=== PATIENT | male | born 1990 | race Two or more races ===

== ENCOUNTER 2024-09-20 16:24 | Emergency (ER) | payer MEDICAID, SELFPAY ==
[2024-09-20 16:38] VITALS: BP 131/87; PULSE 100; RESP 16; TEMP 37; O2SAT 97; BMI 31.6
--- NOTE | 2024-09-20 16:50 | XR_ITS ---
Examination: Abdomen sonogram, Limited Date and time of exam: September 20, 2024 7007 hours Indications: Epigastric pain nausea vomiting beginning 3 days ago Technique: Real-time killian scale transabdominal sonographic images of the upper abdomen obtained. Findings: Multiple gallstones Normal gallbladder wall 0.2 cm Normal common bile duct 0.3 cm Pancreatic head 2.5 cm Hepatomegaly 19 cm fatty infiltration no focal liver lesions Normal hepatopedal portal venous flow Patent IVC Impression: Cholelithiasis, negative for cholecystitis Moderate hepatomegaly fatty liver
--- NOTE | 2024-09-20 16:50 | XR_ITS ---
Examination: CT abdomen and pelvis without contrast. Coronal 3-D reconstructions. Sagittal 2-D reconstructions. Date and time of exam:September 20, 2024 1701 hrs. Comparison September 30, 2022 Indications: Epigastric pain nausea and vomiting onset today, diagnosis severe acute pancreatitis September 30, 2022 CTDI: vol (mGy): 6.63 DLP: (mGycm): 390 Technique: Axial images of the abdomen have been obtained, 3 mm slice thickness Intravenous contrast material has not been administered. Low dose protocols were performed. One or more of the following dose reduction techniques were used; automated exposure control, adjustment of the mA and/or KV according to patient size, use of iterative reconstruction technique. Findings: No focal liver or splenic lesions, hepatomegaly 21 cm No gallstones Mild edema about the pancreas which appears mildly diffusely enlarged No renal or ureteral calculi, no hydronephrosis Normal appendix No bowel obstruction or diverticulitis Contracted urinary bladder with wall thickening, no prostatomegaly The osseous structures are intact Impression: Findings consistent with acute pancreatitis, consider MRCP follow-up
--- NOTE | 2024-09-20 16:51 | PD.EDRME ---
Rapid Medical Screening Exam RME Arrival date/time: 09/20/24 16:24 34-year-old male alcoholic presents to the emergency department complains of abdominal pain Chief Complaint: Abdominal Pain Time Seen by Provider: 09/20/24 16:48 Vital signs: Vital Signs Temperature 98.6 F 09/20/24 16:38 Pulse Rate 100 09/20/24 16:38 Respiratory Rate 16 09/20/24 16:38 Blood Pressure 131/87 H 09/20/24 16:38 Pulse Oximetry (%) 97 09/20/24 16:38 Oxygen Delivery Method Room Air 09/20/24 16:38
[2024-09-20] MEDS: PANTOPRAZOLE 40 MG TABLET PO (17:36)
[2024-09-20 17:48] LABS: Basophils # (Auto) 0.1 Thou/mm3 (0.0-0.2); Basophils % (Auto) 1 % (0-2.5); Eosinophils # (Auto) 0.1 Thou/mm3 (0.0-0.5); Eosinophils % (Auto) 1 % (0-10); Hematocrit 46.4 % (41.0-53.0); Hemoglobin 16.7 g/dL (13.5-16.0); Immature Granulocytes % (Auto) 1 % (0-0); Immature Granulocytes Auto 0.09 Thou/mm3 (0.00-0.00); Lymphocytes # (Auto) 3.5 Thou/mm3 (1.0-4.8); Lymphocytes % (Auto) 44 % (10-50); Mean Corpuscular Hemoglobin 31.2 pg (25.0-35.0); Mean Corpuscular Volume 87 fL (80-100); Monocytes # (Auto) 0.7 Thou/mm3 (0.0-0.8); Monocytes % (Auto) 8 % (0-12); Neutrophils # (Auto) 3.7 Thou/mm3 (1.8-7.7); Neutrophils % (Auto) 46 % (37-80); Nucleated Red Blood Cell % 0 /100 WBC (0); Platelet Count 382 Thou/mm3 (140-440); RDW Standard Deviation 39.7 fL (35.1-43.9); Red Blood Count 5.36 Miln/mm3 (4.50-5.90); White Blood Count 8.1 Thou/mm3 (3.8-10.6)
[2024-09-20 18:13] LABS: Alanine Aminotransferase 167 U/L (10-49); Albumin, Serum 4.9 gm/dL (3.5-5.0); Albumin/Globulin Ratio 1.8 (1.2-2.2); Alcohol, Blood Medical 141.9 mg/dL (0-10.0); Alkaline Phosphatase 95 U/L (46-116); Anion Gap 9 (7-16); Aspartate Amino Transferase 65 U/L (0-34); BUN/Creatinine Ratio 11 Ratio (12-20); Bilirubin,Total 0.6 mg/dL (0.3-1.2); Blood Urea Nitrogen 8 mg/dL (9-23); Calcium 9.5 mg/dL (8.3-10.6); Calcium (Corrected) 9.5 mg/dL (8.5-10.1); Carbon Dioxide 31.3 mMol/L (20.0-31.0); Chloride 99 mMol/L (98-107); Creatinine (Component) 0.7 mg/dL (0.6-1.3); Estimated Creatinine Clearance 124.9 mL/min (>60); Globulin 2.8 gm/dL (2.3-3.5); Glucose 124 mg/dL (74-106); Lipase 36 U/L (12-53); Osmolality,Calculated 276 (275-295); Potassium 4.1 mMol/L (3.4-5.1); Sodium 139 mMol/L (136-145); Total Protein 7.7 gm/dL (5.7-8.2); eGFR > 60 See Note
[2024-09-20 18:54] LABS: Collection Type, Urine Clean Catch; Squamous Epithelial Cell,Urine 0 /hpf (0-5)
[2024-09-20 19:11] LABS: Bilirubin,Urine Negative (Negative); Blood,Urine Trace (Negative); Clarity,Urine Clear (Clear/Hazy); Color,Urine Colorless (Lt Yel-Yel); Culture Indicated,Urine Not Indicated; Glucose, Urine Negative (Negative); Ketones,Urine Negative (Negative); Leukocyte Esterase,Urine Negative (Negative); Nitrite,Urine Negative (Negative); Protein,Urine Negative (Neg - Trace); RBC,Urine 2 /hpf (0-3); Specific Gravity,Urine 1.005 (1.001-1.035); Urobilinogen,Urine Negative mg/dL (0.0-1.0); WBC,Urine 1 /hpf (0-5)
[2024-09-20 19:13] LABS: Amphetamine/Methamp Scrn,U Negative (Negative); Barbiturate Screen,Urine Negative (Negative); Benzodiazepines Screen,Urine Negative (Negative); Benzoylecgonine Screen, Ur Negative (Negative); Fentanyl Screen,Urine Negative (Negative); Opiate Screen,Urine Negative (Negative); THC Screen,Urine Negative (Negative)
--- NOTE | 2024-09-20 19:43 | EDNOTE_ITS ---
ED Alcohol RME/HPI General Chief Complaint: Abdominal Pain Stated Complaint: STOMACH PAIN X 3D; VOMIT/DIARRHEA; DRINKS DAILY Time Seen by Provider: 09/20/24 16:48 Source: patient Arrival date/time: 09/20/24 16:24 Mode of arrival: ambulatory Limitations: no limitations RME / HPI RME / HPI narrative: 09/20/24 16:24 34-year-old male alcoholic presents to the emergency department complains of abdominal pain Dr. Reyna?s Main ED Evaluation: 34-year-old male with history of alcohol abuse who presents to the emergency department for complaints of mild epigastric pain, off and on, for the past 3 days. He reports 2 similar symptoms in the past. He also shared he has history of pancreatitis. He comes in for further evaluation. Denies any other medical complaints or associated symptoms. Related Data Previous Rx's ?Medication ?Instructions ?Recorded quetiapine 25 mg tablet 25 mg PO HS #7 tabs 10/08/22 atorvastatin 20 mg tablet 40 mg (2 x 20 mg) PO HS 1 month 07/29/24 #60 tabs folic acid 1 mg tablet 1 mg PO BID 1 month #60 tabs 07/29/24 thiamine mononitrate (vit B1) 100 100 mg PO BID 1 month #60 tabs 07/29/24 mg tablet (Vitamin B-1 (mononitrate)) aluminum-mag hydroxide-simethicone 10 ml PO TID PRN indigestion 15 09/20/24 400 mg-400 mg-40 mg/5 mL oral susp days #3,000 mL (Advanced Antacid-Antigas) famotidine 20 mg tablet (Pepcid) 20 mg PO BID Gastritis 15 days #30 09/20/24 tabs pantoprazole 40 mg tablet,delayed 40 mg PO QDAY Gastritis 15 days 09/20/24 release (Protonix) #15 tabs sucralfate 1 gram tablet (Carafate) 1 g PO Q6H Gastritis 15 days #60 09/20/24 tabs Allergies Allergy/AdvReac Type Severity Reaction Status Date / Time No Known Allergies Allergy Verified 09/20/24 16:29 Review of Systems Review of Systems Systems Reviewed: All systems reviewed, normal except as documented Past Medical History Past Medical History CARDIAC: Negative Cardiac Disorders or Congestive Heart Failure RESPIRATORY: Negative Chronic Obstructive Pulmonary Disease (COPD) or Asthma GENITOURINARY: Negative Renal Disease ENDOCRINE: Negative Diabetes Mellitus Type 1 or Diabetes Mellitus Type 2 HEMATOLOGIC: Negative Sickle Cell Disease Social History SMOKING STATUS: Never smoker ED Exam Narrative Physical exam: GENERAL APPEARANCE: alert and oriented x 4, well-developed, well-nourished, no acute distress VITALS: All vitals were reviewed and the pulse ox is 97% on room air, which is normal according to my interpretation. HEENT: Normocephalic, atraumatic; pupils equal, round, reactive to light; EOMI; mucous membranes pink, moist; oropharynx clear NECK: Supple LUNGS: CTABL; no wheezes, no rales, no rhonchi HEART: Regular rate, regular rhythm; normal S1, S2; no murmurs ABDOMEN: non distended; normal BS; soft, mild epigastric tenderness, no guarding, no rebound; no masses, no organomegaly, no hernia BACK: no CVA tenderness EXTREMITIES: atraumatic; no edema NEUROLOGIC: awake; alert and oriented x4; cranial nerves II-XII grossly intact; no focal sensory or motor deficits PSYCHIATRIC: appropriate mood and affect SKIN: warm, dry, normal color; no rashes General Limitations: Present no limitations Course Quality Measures none Orders Category Date Time Status CT abdomen pelvis wo con Stat Exams 09/20/24 16:50 Completed US gall bladder Stat Exams 09/20/24 16:50 Completed Alcohol, Blood Medical Stat Lab 09/20/24 17:33 Completed CBC Stat Lab 09/20/24 17:33 Completed Comprehensive Metabolic Panel Stat Lab 09/20/24 17:33 Completed Drug Screen,Urine Stat Lab 09/20/24 18:47 Completed Lipase Stat Lab 09/20/24 17:33 Completed UA, C/S IF [Urinalysis, C/S if Indicated] Stat Lab 09/20/24 18:47 Completed Acetaminophen Tab [Tylenol ES Tab] Med 09/20/24 19:47 Discontinued 1,000 mg PO X1 ONE Famotidine [Pepcid] Med 09/20/24 19:47 Discontinued 20 mg PO X1 ONE Pantoprazole [Protonix] Med 09/20/24 16:50 Discontinued 40 mg PO X1 ONE Sucralfate [Carafate] Med 09/20/24 19:47 Discontinued 1 gm PO X1 ONE mg Hyd/Al Hyd/Josué Susp [Maalox Susp] Med 09/20/24 19:47 Discontinued 30 ml PO X1 ONE Vital Signs Vital signs: Vital Signs Temperature 98.6 F 09/20/24 16:38 Pulse Rate 100 09/20/24 16:38 Respiratory Rate 16 09/20/24 16:38 Blood Pressure 131/87 H 09/20/24 16:38 Pulse Oximetry (%) 97 09/20/24 16:38 Oxygen Delivery Method Room Air 09/20/24 16:38 Discharge Plan Plan Patient Disposition: HOME (Self Care) Disposition Comment: Stable for discharge Patient condition on transfer: Stable Prescriptions/Referrals Prescriptions/Med Rec: New famotidine [Pepcid] 20 mg tablet 20 mg PO BID 15 Days Qty: 30 0RF alum-mag hydroxide-simeth [Advanced Antacid-Antigas] 400-400-40 mg/5 mL suspension 10 ml PO TID PRN (Reason: indigestion) 15 Days Qty: 3000 0RF sucralfate [Carafate] 1 gram tablet 1 g PO Q6H 15 Days Qty: 60 0RF pantoprazole [Protonix] 40 mg tablet,delayed release (DR/EC) 40 mg PO QDAY 15 Days Qty: 15 0RF No Action atorvastatin 20 mg Tablet 40 mg PO HS 30 Days Qty: 60 1RF folic acid 1 mg tablet 1 mg PO BID 30 Days Qty: 60 1RF thiamine mononitrate (vit B1) [Vitamin B-1 (mononitrate)] 100 mg Tablet 100 mg PO BID 30 Days Qty: 60 1RF quetiapine 25 mg tablet 25 mg PO HS Qty: 7 0RF Referrals: Tory Davis MD [Physician] - In 1 week No Primary/Family,Physician [Primary Care Provider] - In 1 week Problem List Clinical Impression: Gastritis, Acute epigastric pain Patient/Caregiver Discharge Instructions Discharge Activity: activity as tolerated Education Materials: Finding the Right Rehab ..., Social Drinking vs Problem Drinking, Treating Gastritis, Understanding Gastritis, ED Gastritis (Adult), ED PEPTIC ULCER vs GASTRITIS Additional Instructions: It is very important that you stop drinking alcohol. You probably have something called alcoholic gastritis. This is an inflammation of your stomach due to a high alcohol consumption. It may just disappear after you stop drinking. I called the multiple medications to your pharmacy. Please take these as directed You should follow-up with your primary care doctor within the next several days. You should also follow-up with Dr. Davis. Dr. Davis is our electrical assembly supervisor which is a specialist with the stomach. Please just call his office to make an appointment As always if you are not improving within 48 hours or if you are worsening in any way please return to the emergency department and we will help you Print Language: Monegasque Stand Alone Forms: [facility] Award Info., Patient Portal Info Letter Alcohol MDM Narrative MDM Narrative: Scribe Attestation: I, Vanessakeyla Jose, am scribing for and in the presence of Dr. Reyna. Provider Notation: Although this document has been carefully reviewed, there may still be some phonetic and other typographical errors. These errors are purely grammatical due to imperfections in the software program and should not be construed in any way to compromise the substance of the patient's medical care during this visit. Patient data External records reviewed:: [facility] previous records Clinical information provided by:: patient Social determinants that could affect healthcare access:: none Patient has the following chronic illnesses:: Pancreatitis How is presenting disease/condition affected by chronic disease/condition?: uneffected by Evaluation data The following diagnostics were reviewed and interpreted by me:: lab results and radiology exam(s) Lab and/or radiology exams considered but not ordered:: None Interpretation Summary: Examination: CT abdomen and pelvis without contrast. Date and time of exam:September 20, 2024 1701 hrs. Comparison September 30, 2022 Indications: Epigastric pain nausea and vomiting onset today, diagnosis severe acute pancreatitis September 30, 2022 Findings: No focal liver or splenic lesions, hepatomegaly 21 cm No gallstones Mild edema about the pancreas which appears mildly diffusely enlarged No renal or ureteral calculi, no hydronephrosis Normal appendix No bowel obstruction or diverticulitis Contracted urinary bladder with wall thickening, no prostatomegaly The osseous structures are intact Impression: Findings consistent with acute pancreatitis, consider MRCP follow-up Dictated By: Nader Posadas MD Examination: Abdomen sonogram, Limited Date and time of exam: September 20, 2024 7007 hours Indications: Epigastric pain nausea vomiting beginning 3 days ago Technique: Real-time killian scale transabdominal sonographic images of the upper abdomen obtained. Findings: Multiple gallstones Normal gallbladder wall 0.2 cm Normal common bile duct 0.3 cm Pancreatic head 2.5 cm Hepatomegaly 19 cm fatty infiltration no focal liver lesions Normal hepatopedal portal venous flow Patent IVC Impression: Cholelithiasis, negative for cholecystitis Moderate hepatomegaly fatty liver Dictated By: Nader Posadas MD Medications / Prescriptions Medications or Prescriptions considered but not ordered:: None Medication administrations:: Medication Administration History Discontinued Medications Acetaminophen (Acetaminophen 500 Mg Tablet) 1,000 mg PO X1 ONE Stop: 09/20/24 19:48 Last Admin: 09/20/24 20:06 Dose: 1,000 mg Documented By: OA Al Hydrox/Mg Hydrox/Simethicone (Mg Hyd/Al Hyd/Josué (Maalox Reg) Susp 30 Ml Udc) 30 ml PO X1 ONE Stop: 09/20/24 19:48 Last Admin: 09/20/24 20:06 Dose: 30 ml Documented By: OA Famotidine (Famotidine 20 Mg Tablet) 20 mg PO X1 ONE Stop: 09/20/24 19:48 Last Admin: 09/20/24 20:07 Dose: 20 mg Documented By: OA Pantoprazole Sodium (Pantoprazole 40 Mg Tablet) 40 mg PO X1 ONE Stop: 09/20/24 16:51 Last Admin: 09/20/24 17:36 Dose: 40 mg Documented By: OA Sucralfate (Sucralfate 1 Gm Tablet) 1 gm PO X1 ONE Stop: 09/20/24 19:48 As above Consultations Consultation(s) initiated? (list below): No Diagnosis Differential diagnosis alcohol: other (Cholecystitis, cholelithiasis, choledocholithiasis, gall stones pancreatitis, pancreatitis, gastritis, peptic ulcer disease) Most likely diagnosis given after review of the tests above:: See clinical impression below Admission Indicated Admission indicated?: not indicated Admission Request Was there a request for admission?: No Disposition Plan Disposition Plan: Discharge Discharge Attestation Discharge Attestation: The patient and all family members were given an opportunity to ask questions and understood the discharge instructions. Discharge instructions specifically effects, indications for sooner follow up or return to the emergency department, and the expected course of current diagnosis. Patient condition: Stable
[2024-09-20] MEDS: ACETAMINOPHEN 500 MG TABLET 1000 MG PO (20:06)
[2024-09-20] MEDS: MG HYD/AL HYD/SIME (Maalox Reg) SUSP 30 ML UDC PO (20:06)
[2024-09-20] MEDS: FAMOTIDINE 20 MG TABLET PO (20:07)
== END 2024-09-20 20:07 | disposition home or self-care (01) ==
PROVIDERS: Nurse Practitioner Primary Care; Emergency Provider Emergency Medicine
DX: K29.00 Acute gastritis without bleeding (principal); F10.10 Alcohol abuse, uncomplicated
CPT/HCPCS: 36415; 74176; 76705; 80053; 80307; 80320; 81001; 83690; 85025; 99284; A9270; G0480

== ENCOUNTER 2024-12-12 11:34 | Emergency (ER) | payer MEDICAID, SELFPAY ==
[2024-12-12 12:01] VITALS: BP 128/85; PULSE 79; RESP 20; TEMP 36.7; O2SAT 98; BMI 31.1
--- NOTE | 2024-12-12 12:03 | XR_ITS ---
Examination: CT abdomen and pelvis without contrast. Coronal 3-D reconstructions. Sagittal 2-D reconstructions. Date and time of exam:December 12, 2024 1227 hours Comparison September 20, 2024 INDICATIONS: Generalized abdominal pain nausea vomiting today, history acute pancreatitis CTDI: vol (mGy): 6.57 DLP: (mGycm): 368 Technique: Axial images of the abdomen have been obtained, 3 mm slice thickness Intravenous contrast material has not been administered. Low dose protocols were performed. One or more of the following dose reduction techniques were used; automated exposure control, adjustment of the mA and/or KV according to patient size, use of iterative reconstruction technique. Findings: No focal liver or splenic lesions No gallstones Suspicious for minimal pancreatic edema No renal or ureteral calculi, no hydronephrosis Aorta normal size Normal appendix No bowel obstruction No diverticulitis Urinary bladder intact No prostatomegaly IMPRESSION: Suspicious for minimal pancreatic edema, clinical correlation advised, consider MRCP follow-up
--- NOTE | 2024-12-12 12:03 | XR_ITS ---
Examination: CT brain head without contrast. 2-D sagittal coronal reconstructions Date and time of exam:December 12, 2024 1224 hours INDICATIONS: Generalized head pain and dizziness today CTDI: vol (mGy):50.1 DLP: (mGycm):1005 Technique: Multiple CT axial sections of the brain have been obtained, 5 mm slice thickness. Contrast has not been administered. 2-D sagittal, coronal reconstructions have been obtained Low dose protocols were performed. One or more of the following dose reduction techniques were used; automated exposure control, adjustment of the mA and/or KV according to patient size, use of iterative reconstruction technique. Findings: No significant ventricular enlargement. Intra-axial or extra-axial hemorrhage density is not seen. No mass effect or midline shift Basal cisterns are not remarkable. Fourth ventricle is midline. Cranial vault intact. Impression: Negative for acute hemorrhage, mass effect or midline shift Advise clinical correlation follow-up accordingly
--- NOTE | 2024-12-12 12:03 | PD.EDRME ---
Rapid Medical Screening Exam RME Arrival date/time: 12/12/24 11:34 34-year-old male presents the emergency room today with complaints of nausea vomiting and abdominal pain as well as headache patient reports everyday drinker Chief Complaint: Abdominal Pain Vital signs: Vital Signs Temperature 98.0 F 12/12/24 12:01 Pulse Rate 79 12/12/24 12:01 Respiratory Rate 20 12/12/24 12:01 Blood Pressure 128/85 H 12/12/24 12:01 Pulse Oximetry (%) 98 12/12/24 12:01 Oxygen Delivery Method Room Air 12/12/24 12:01
[2024-12-12] MEDS: METOCLOPRAMIDE INJ 5 MG/ML VIAL 2 ML 10 MG IM (12:13)
[2024-12-12 12:55] LABS: Basophils % (Auto) 0 % (0-2.5); Eosinophils % (Auto) 0 % (0-10); Hematocrit 44.6 % (41.0-53.0); Hemoglobin 16.7 g/dL (13.5-16.0); Immature Granulocytes % (Auto) 0 % (0-0); Immature Granulocytes Auto 0.03 Thou/mm3 (0.00-0.00); Lymphocytes # (Auto) 3.4 Thou/mm3 (1.0-4.8); Lymphocytes % (Auto) 43 % (10-50); Mean Corpuscular HGB Conc 37.4 g/dl (31.0-37.0); Mean Corpuscular Volume 83 fL (80-100); Monocytes # (Auto) 0.4 Thou/mm3 (0.0-0.8); Monocytes % (Auto) 6 % (0-12); Neutrophils # (Auto) 3.9 Thou/mm3 (1.8-7.7); Neutrophils % (Auto) 50 % (37-80); Nucleated Red Blood Cell % 0 /100 WBC (0); Platelet Count 327 Thou/mm3 (140-440); RDW Standard Deviation 35.8 fL (35.1-43.9); Red Blood Count 5.38 Miln/mm3 (4.50-5.90); White Blood Count 7.8 Thou/mm3 (3.8-10.6)
[2024-12-12 13:22] LABS: Alanine Aminotransferase 68 U/L (10-49); Albumin, Serum 4.8 gm/dL (3.5-5.0); Albumin/Globulin Ratio 1.7 (1.2-2.2); Alcohol, Blood Medical 252.4 mg/dL (0-10.0); Alkaline Phosphatase 89 U/L (46-116); Anion Gap 11 (7-16); Aspartate Amino Transferase 68 U/L (0-34); BUN/Creatinine Ratio 14 Ratio (12-20); Blood Urea Nitrogen 10 mg/dL (9-23); Calcium 8.9 mg/dL (8.3-10.6); Calcium (Corrected) 8.9 mg/dL (8.5-10.1); Carbon Dioxide 25.8 mMol/L (20.0-31.0); Chloride 96 mMol/L (98-107); Creatinine (Component) 0.7 mg/dL (0.6-1.3); Estimated Creatinine Clearance 123.9 mL/min (>60); Globulin 2.8 gm/dL (2.3-3.5); Glucose 139 mg/dL (74-106); Lipase 82 U/L (12-53); Osmolality,Calculated 267 (275-295); Potassium 3.5 mMol/L (3.4-5.1); Sodium 133 mMol/L (136-145); Total Protein 7.6 gm/dL (5.7-8.2); eGFR > 60 See Note
== END 2024-12-12 15:40 | disposition left against medical advice (07) ==
LOC: SERX 12:46
PROVIDERS: Nurse Practitioner Primary Care; Emergency Provider Family Medicine
DX: R10.84 Generalized abdominal pain (principal); R11.2 Nausea with vomiting, unspecified; R51.9 Headache, unspecified; R42 Dizziness and giddiness; Z53.29 Procedure and treatment not carried out because of patient's decision for other reasons
CPT/HCPCS: 36415; 70450; 74176; 80053; 80307; 80320; 81001; 83690; 85025; 96372; 99281; J2765; G0480

== ENCOUNTER 2024-12-17 17:06 | Inpatient (IN) | payer MEDICAID, SELFPAY ==
[2024-12-17 17:10] VITALS: BP 140/98; PULSE 93; RESP 18; TEMP 36.4; O2SAT 98
[2024-12-17 17:14] VITALS: PULSE 92; RESP 18; O2SAT 98
--- NOTE | 2024-12-17 17:18 | EDNOTE_ITS ---
ED General RME/HPI General Chief complaint: Alcohol Stated complaint: WEAKNESS Time Seen by Provider: 12/17/24 17:12 Arrival date/time: 12/17/24 17:06 CC: Alcohol intoxication with headache HPI ongoing all day, patient arrives via EMS reports stable vital signs. Patient is tearful slurred speech who complains of total body pain Related Data Previous Rx's ?Medication ?Instructions ?Recorded quetiapine 25 mg tablet 25 mg PO HS #7 tabs 10/08/22 atorvastatin 20 mg tablet 40 mg (2 x 20 mg) PO HS 1 mo nth 07/29/24 #60 tabs folic acid 1 mg tablet 1 mg PO BID 1 month #60 tabs 07/29/24 thiamine mononitrate (vit B1) 100 100 mg PO BID 1 owen h #60 tabs 07/29/24 mg tablet (Vitamin B-1 (mononitrate)) Allergies Allergy/AdvReac Type Severity Reaction Status Date / Time No Known Allergies Allergy Verified 12/12/24 11:40 Review of Systems Review of Systems ROS Unobtainable: unobtainable due to medical condition Past Medical History Past Medical History CARDIAC: Negative Cardiac Disorders or Congestive Heart Failure RESPIRATORY: Negative Chronic Obstructive Pulmonary Disease (COPD) or Asthma GENITOURINARY: Negative Renal Disease ENDOCRINE: Negative Diabetes Mellitus Type 1 or Diabetes Mellitus Type 2 HEMATOLOGIC: Negative Sickle Cell Disease Social History SMOKING STATUS: Never smoker ED Exam Narrative Physical exam: [General: Appears not in any acute distress Head normocephalic HEENT: Within acceptable limits Neck is supple nontender Chest equal chest rise nontender to palpation Respiratory: Clear to auscultation no wheezes crackles or rubs CV: Rate rhythm is regular no murmurs rubs or clicks Abdomen is soft nontender no masses positive bowel sounds all 4 quadrants Back: No CVA tenderness no spinous process tenderness from cervical spine thoracic and lumbar spine Skin: Intact no petechiae rash induration ulceration or crepitus Extremities: Moving all extremity against resistance cap refill less than 2 seconds neurosensory intact Neuro: Awake alert oriented x2, person and place, Glascow coma 15 no focal deficits] Course Quality Measures none Orders Category Date Time Status Alcohol, Blood Medical Stat Lab 12/17/24 17:50 Completed Alcohol, Blood Medical Stat Lab 12/18/24 03:27 Completed Amylase Stat Lab 12/18/24 03:27 Completed CBC Stat Lab 12/17/24 17:50 Completed CMP [Comprehensive Metabolic Panel] Stat Lab 12/17/24 17:50 Completed Lipase Stat Lab 12/18/24 03:27 Completed Magnesium Stat Lab 12/18/24 03:27 Completed PT [Prothrombin Time with INR] Stat Lab 12/17/24 17:50 Completed PTT [Partial Thromboplastin Time] Stat Lab 12/17/24 17:50 Completed Famotidine [Pepcid] Med 12/18/24 02:59 Discontinued 40 mg PO X1 ONE Folic Acid Inj Med 12/17/24 17:22 Discontinued 1 mg IVP X1 ONE KCL 10% Liq UDC 15 ML Med 12/18/24 02:00 Discontinued 40 meq PO X1 ONE LORazepam [Ativan] Med 12/18/24 08:20 Discontinued 2 mg PO X1 ONE NALOXONE INJ (Vial) [Narcan Inj (Vial)] Med 12/17/24 21:06 Discontinued 2 mg IV X1 ONE Ondansetron Odt [Zofran Odt] Med 12/18/24 02:59 Discontinued 4 mg PO X1 ONE Ondansetron Odt [Zofran Odt] Med 12/18/24 08:20 Discontinued 4 mg PO X1 ONE Pantoprazole [Protonix] Med 12/18/24 02:59 Discontinued 40 mg PO X1 ONE Ringers Lactated 1000 ml [Lactated Ringers] 1,000 ml Med 12/18/24 02:00 Discontinued IV 1,000 mls/hr Sodium Chloride 0.9% 1000 ml [Ns] 1,000 ml Med 12/17/24 17:22 Discontinued IV 999 mls/hr Thiamine Inj [Vitamin B-1 Inj] Med 12/17/24 17:22 Discontinued 100 mg IVP X1 ONE flumazeniL [Romazicon Inj] Med 12/17/24 21:06 Discontinued 0.2 mg IVP X1 ONE Vital Signs Vital signs: Vital Signs Temperature 97.6 F 12/17/24 17:10 Pulse Rate 93 12/17/24 17:10 Respiratory Rate 18 12/17/24 17:10 Blood Pressure 140/98 H 12/17/24 17:10 Pulse Oximetry (%) 98 12/17/24 17:10 Oxygen Delivery Method Room Air 12/17/24 17:10 [facility] [place] Patient data External records reviewed:: [facility] previous records Clinical information provided by:: patient Social determinants that could affect healthcare access:: alcohol use Patient has the following chronic illnesses:: Alcohol intoxication How is presenting disease/condition affected by chronic disease/condition?: e xacerbated by Evaluation data The following diagnostics were reviewed and interpreted by me:: lab results Lab and/or radiology exams considered but not ordered:: CBC shows no leukocytosis anemia thrombocytopenia Coags show PT of 12.7 INR is normal PTT is normal Sodium 135 potassium 3.3 chloride of 96. Glucose at 168. Bili is normal at 1.1 AST 717 ALT 412 alk phos at 115. Alcohol level of 394. Interpretation Summary: Patient is awake and alert with slurred speech but mildly unsteady on his feet. Patient is not able to tolerate p.o. fluids. None Medications Medications considered but not ordered:: None Medication administrations:: Medication Administration History Hydrocodone Bitart/Acetaminophen (Hydrocodone/Apap 5/325 Tablet) 1 tab PO Q4HR PRN PRN Reason: PAIN SCALE 4-6 (Moderate Stop: 12/23/24 11:33 Hydrocodone Bitart/Acetaminophen (Hydrocodone/Apap 10/325 Tab) 1 tab PO Q4HR PRN PRN Reason: PAIN SCALE 7-10 (Severe Stop: 12/23/24 11:33 Last Admin: 12/18/24 17:41 Dose: 1 tab Documented By: VG Ascorbic Acid (Ascorbic Acid 250 Mg Tablet) 250 mg PO BID [facility] Stop: 01/17/25 20:59 Dextrose (Dextrose 50%-Water Inj 50 Ml Syringe) 25 ml IV Q15MIN PRN PRN Reason: BG 50-70 responsive npo pt Stop: 01/17/25 11:40 Dextrose (Dextrose 50%-Water Inj 50 Ml Syringe) 50 ml IV Q15MIN PRN PRN Reason: BG <50 OR BG <70 & pt unresponsive Stop: 01/17/25 11:40 Folic Acid (Folic Acid 1 Mg Tablet) 1 mg PO QDAY JOSEPHINE Stop: 01/18/25 08:59 Gabapentin (Gabapentin 100 Mg Capsule) 200 mg PO BID JOSEPHINE Stop: 01/17/25 20:59 Glucagon (Glucagon Inj 1 Mg Vial) 1 mg IM Q15MIN PRN PRN Reason: BG <70, and no IV access Heparin Sodium (Porcine) (Heparin Sod Inj 5000 Unit/Ml Vial) 5,000 unit SC Q12HR JOSEPHINE Stop: 01/01/25 20:59 Sodium Chloride (Ns) 1,000 mls @ 120 mls/hr IV .Q8H20M JOSEPHINE Stop: 01/18/25 02:59 Sodium Chloride (Ns) 1,000 mls @ 120 mls/hr IV .Q8H20M ONE Stop: 12/18/24 22:19 Last Admin: 12/18/24 14:16 Dose: 120 mls/hr Documented By: VG Insulin Human Lispro (Insulin Lispro (Admelog) 1 Unit/0.01 Ml Unit) 0 unit SC Q6HR JOSEPHINE; Protocol Stop: 01/17/25 11:59 Last Admin: 12/18/24 18:06 Dose: Not Given Documented By: VG Non-Admin Reason: Per Protocol Admin: 12/18/24 14:00 Dose: Not Given Documented By: VG Non-Admin Reason: Per Protocol Lorazepam (Lorazepam 0.5 Mg Tablet) 0.5 mg PO Q4HR PRN PRN Reason: CIWA Score 2-6 Stop: 12/23/24 11:41 Lorazepam (Lorazepam 2 Mg/Ml Vial) 1 mg IV Q2HR PRN PRN Reason: CIWA SCORE 7-13 Stop: 12/23/24 11:41 Last Admin: 12/18/24 17:50 Dose: 1 mg Documented By: VG Lorazepam (Lorazepam 2 Mg/Ml Vial) 2 mg IV Q2HR PRN PRN Reason: CIWA [id number] Stop: 12/23/24 11:59 Ondansetron HCl (Ondansetron Inj 2 Mg/Ml Inj 2 Ml) 4 mg IV Q6H PRN; Protocol PRN Reason: NAUSEA OR VOMITING Stop: 01/17/25 11:33 Last Admin: 12/18/24 17:42 Dose: 4 mg Documented By: VG Pantoprazole Sodium (Pantoprazole Inj 40 Mg Vial) 40 mg IV QDAY [facility] Stop: 01/19/25 08:59 Sennosides (Senna Tablet) 1 tab PO QDAY PRN; Protocol PRN Reason: constipation Stop: 01/17/25 11:33 Thiamine HCl (Thiamine 100 Mg Tablet) 100 mg PO QDAY [facility] Stop: 01/18/25 08:59 Discontinued Medications Acetaminophen (Acetaminophen 325 Mg Tablet) 650 mg PO Q6H PRN PRN Reason: Mild Pain 1-3 or Fever >100.3 Stop: 01/17/25 11:33 Famotidine (Famotidine 20 Mg Tablet) 40 mg PO X1 ONE Stop: 12/18/24 03:00 Last Admin: 12/18/24 03:14 Dose: 40 mg Documented By: PERLA Flumazenil (Flumazenil Inj 0.1 Mg/Ml Vial 10 Ml) 0.2 mg IVP X1 ONE Stop: 12/17/24 21:07 Last Admin: 12/17/24 23:09 Dose: Not Given Documented By: LORENZO Non-Admin Reason: Wrong Patient Folic Acid (Folic Acid Inj 1 Mg/0.2 Ml) 1 mg IVP X1 ONE Stop: 12/17/24 17:23 Last Admin: 12/17/24 18:16 Dose: 1 mg Documented By: JUANITO Sodium Chloride (Ns) 1,000 mls @ 999 mls/hr IV .Q1H1M ONE Stop: 12/17/24 18:22 Last Infusion: 12/17/24 19:25 Dose: Infused Documented By: Admin: 12/17/24 18:16 Dose: 999 mls/hr Documented By: JUANITO Lactated Ringer's (Lactated Ringers) 1,000 mls @ 1,000 mls/hr IV .Q1H ONE Stop: 12/18/24 02:59 Last Admin: 12/18/24 02:43 Dose: Not Given Documented By: PERLA Non-Admin Reason: Cancelled by Provider Sodium Chloride (Ns) 1,000 mls @ 80 mls/hr IV .[id number] ONE Stop: 12/19/24 02:29 Sodium Chloride (Ns) 1,000 mls @ 80 mls/hr IV .[id number] JOSEPHINE Stop: 01/18/25 02:59 Lorazepam (Lorazepam 0.5 Mg Tablet) 2 mg PO X1 ONE Stop: 12/18/24 08:21 Last Admin: 12/18/24 08:24 Dose: 2 mg Documented By: LARISSA Lorazepam (Lorazepam 2 Mg/Ml Vial) 2 mg IV Q2HR JOSEPHINE Stop: 12/23/24 11:59 Last Admin: 12/18/24 16:00 Dose: Not Given Documented By: LARISSA Non-Admin Reason: Patient Asleep Admin: 12/18/24 14:16 Dose: 2 mg Documented By: Admin: 12/18/24 14:14 Dose: Not Given Documented By: LARISSA Non-Admin Reason: Duplicate Medication on eMAR Naloxone HCl (Naloxone Inj 0.4 Mg/Ml Vial) 2 mg IV X1 ONE Stop: 12/17/24 21:07 Last Admin: 12/17/24 23:09 Dose: Not Given Documented By: SF Non-Admin Reason: Wrong Patient Ondansetron HCl (Ondansetron Odt 4 Mg Tabrap) 4 mg PO X1 ONE; Protocol Stop: 12/18/24 03:00 Last Admin: 12/18/24 03:14 Dose: 4 mg Documented By: PERLA Ondansetron HCl (Ondansetron Odt 4 Mg Tabrap) 4 mg PO X1 ONE; Protocol Stop: 12/18/24 08:21 Last Admin: 12/18/24 08:24 Dose: 4 mg Documented By: LARISSA Pantoprazole Sodium (Pantoprazole 40 Mg Tablet) 40 mg PO X1 ONE Stop: 12/18/24 03:00 Last Admin: 12/18/24 03:14 Dose: 40 mg Documented By: PERLA Potassium Chloride (Potassium Chloride 10% 20 Meq/15 Ml Udc) 40 meq PO X1 ONE Stop: 12/18/24 02:01 Last Admin: 12/18/24 02:38 Dose: 40 meq Documented By: PERLA Thiamine HCl (Thiamine Inj 100 Mg/Ml Vial 2 Ml) 100 mg IVP X1 ONE Stop: 12/17/24 17:23 Last Admin: 12/17/24 18:16 Dose: 100 mg Documented By: JUANITO None Consultations Consultation(s) initiated? (list below): No Diagnosis Differential Diagnosis ED Complaint MDM: Acute alcohol intoxication cirrhosis alcohol is always doing Most likely diagnosis given after review of the tests above:: Acute alcohol intoxication Admission Indicated Admission indicated?: not indicated Explain why admission is indicated or not indicated:: Stable for discharge Admission Request Was there a request for admission?: No Disposition Plan Disposition Plan: Discharge Discharge Attestation Discharge Attestation: The patient and all family members were given an opportunity to ask questions and understood the discharge instructions. Discharge instructions specifically effects, indications for sooner follow up or return to the emergency department, and the expected course of current diagnosis. Patient condition: Stable Medical Decision Making Differential Diagnosis Differential Diagnosis: Acute alcohol intoxication cirrhosis alcohol is always doing Lab Data 12/18/24 14:20 12/18/24 14:20 Labs: Lab Results 12/17/24 12/18/24 Range/Units 17:50 03:27 WBC 4.9 (3.8-10.6) Thou/mm3 RBC 5.47 (4.50-5.90) Miln/mm3 Hgb 17.0 H (13.5-16.0) g/dL Hct 45.1 (41.0-53.0) % MCV 82 (80-100) fL MCH 31.1 (25.0-35.0) pg MCHC 37.7 H (31.0-37.0) g/dl RDW Std Deviation 36.0 (35.1-43.9) fL Plt Count 231 D (140-440) Thou/mm3 Neut % (Auto) 49 (37-80) % Lymph % (Auto) 42 (10-50) % [place] % (Auto) 7 (0-12) % Eos % (Auto) 1 (0-10) % Baso % (Auto) 0 (0-2.5) % Neut # (Auto) 2.4 (1.8-7.7) Thou/mm3 Lymph # (Auto) 2.1 (1.0-4.8) Thou/mm3 [place] # (Auto) 0.4 (0.0-0.8) Thou/mm3 Eos # (Auto) 0.0 (0.0-0.5) Thou/mm3 Baso # (Auto) 0.0 (0.0-0.2) Thou/mm3 Immature Gran # (Auto) 0.03 H (0.00-0.00) Thou/mm3 Absolute Nucleated RBC 0.00 (0.00-0.00) Thou/mm3 Immature Gran % 1 H (0-0) % Nucleated RBC % 0 (0) /100 WBC PT 12.7 H (9.0-12.2) Seconds INR 1.2 (0.9-1.3) APTT 32.7 (22.0-36.0) Seconds Sodium 134 L (136-145) mMol/L Potassium 3.3 L (3.4-5.1) mMol/L Chloride 96 L (98-107) mMol/L Carbon Dioxide 24.8 (20.0-31.0) mMol/L Anion Gap 13 (7-16) BUN 17 (9-23) mg/dL Creatinine 0.8 (0.6-1.3) mg/dL Estim Creat Clear Calc 131.4 (>60) mL/min eGFR > 60 (60 - ) See Note BUN/Creatinine Ratio 21 H (12-20) Ratio Glucose 168 H (74-106) mg/dL Calculated Osmolality 273 L (275-295) Calcium 8.6 (8.3-10.6) mg/dL Corrected Calcium 8.6 (8.5-10.1) mg/dL Magnesium 2.0 (1.6-2.6) mg/dL Total Bilirubin 1.1 (0.3-1.2) mg/dL AST 717 H* (0-34) U/L ALT 418 H (10-49) U/L Alkaline Phosphatase 115 (46-116) U/L Total Protein 7.2 (5.7-8.2) gm/dL Albumin 4.3 (3.5-5.0) gm/dL Globulin 2.9 (2.3-3.5) gm/dL Albumin/Globulin Ratio 1.5 (1.2-2.2) Triglycerides 403 H (30-150) mg/dL Cholesterol 126 L (132-200) mg/dL LDL Cholesterol, Calc TNP HDL Cholesterol 61 H (40-60) mg/dL Cholesterol/HDL Ratio 2.1 L (4.0-6.7) RATIO Amylase 77 (30-118) U/L Lipase 131 H (12-53) U/L Ethyl Alcohol 394.1 H 247.5 H (0-10.0) mg/dL Discharge Plan Plan Patient Disposition: Admit Acute Care w/in Hospital Problem List Clinical Impression: Alcohol abuse with withdrawal PA/EXTRUSION BENDER Supervising Physician MARIANNA/EXTRUSION BENDER Supervising Physician: Cayden Guzmán ENP, MD Attestation Attestation I took over the care from Cayden Guzmán NP at 11 PM on 12/17/24, see his notes for complete H&P. I was asked to watch the patient in severe alcohol intoxication. During my watch, the patient remained stable. At 6 AM on 12/18/24, the care of the patient was transferred to Dr. HENDRIX. Lukasz Gimenez MD
[2024-12-17 17:22] VITALS: BMI 27.3
[2024-12-17] MEDS: THIAMINE INJ 100 MG/ML VIAL 2 ML IVP (18:16)
[2024-12-17] MEDS: SODIUM CHLORIDE 0.9% 1000 ML 1,000 ML 999 ML IV (18:16)
[2024-12-17] MEDS: FOLIC ACID INJ 1 MG/0.2 ML IVP (18:16)
[2024-12-17 18:17] LABS: Basophils % (Auto) 0 % (0-2.5); Eosinophils % (Auto) 1 % (0-10); Hematocrit 45.1 % (41.0-53.0); Immature Granulocytes % (Auto) 1 % (0-0); Immature Granulocytes Auto 0.03 Thou/mm3 (0.00-0.00); Lymphocytes # (Auto) 2.1 Thou/mm3 (1.0-4.8); Lymphocytes % (Auto) 42 % (10-50); Mean Corpuscular HGB Conc 37.7 g/dl (31.0-37.0); Mean Corpuscular Hemoglobin 31.1 pg (25.0-35.0); Mean Corpuscular Volume 82 fL (80-100); Monocytes # (Auto) 0.4 Thou/mm3 (0.0-0.8); Monocytes % (Auto) 7 % (0-12); Neutrophils # (Auto) 2.4 Thou/mm3 (1.8-7.7); Neutrophils % (Auto) 49 % (37-80); Nucleated Red Blood Cell % 0 /100 WBC (0); Platelet Count 231 Thou/mm3 (140-440); Red Blood Count 5.47 Miln/mm3 (4.50-5.90); White Blood Count 4.9 Thou/mm3 (3.8-10.6)
[2024-12-17 18:42] LABS: INR 1.2 (0.9-1.3); Partial Thromboplastin Time 32.7 Seconds (22.0-36.0); Prothrombin Time 12.7 Seconds (9.0-12.2)
[2024-12-17 18:45] VITALS: BP 127/80; PULSE 74; RESP 16; TEMP 36.7; O2SAT 98
[2024-12-17 18:50] LABS: Alanine Aminotransferase 418 U/L (10-49); Albumin, Serum 4.3 gm/dL (3.5-5.0); Albumin/Globulin Ratio 1.5 (1.2-2.2); Alkaline Phosphatase 115 U/L (46-116); Anion Gap 13 (7-16); Aspartate Amino Transferase 717 U/L (0-34); BUN/Creatinine Ratio 21 Ratio (12-20); Bilirubin,Total 1.1 mg/dL (0.3-1.2); Blood Urea Nitrogen 17 mg/dL (9-23); Calcium 8.6 mg/dL (8.3-10.6); Calcium (Corrected) 8.6 mg/dL (8.5-10.1); Carbon Dioxide 24.8 mMol/L (20.0-31.0); Chloride 96 mMol/L (98-107); Creatinine (Component) 0.8 mg/dL (0.6-1.3); Estimated Creatinine Clearance 131.4 mL/min (>60); Globulin 2.9 gm/dL (2.3-3.5); Glucose 168 mg/dL (74-106); Osmolality,Calculated 273 (275-295); Potassium 3.3 mMol/L (3.4-5.1); Sodium 134 mMol/L (136-145); Total Protein 7.2 gm/dL (5.7-8.2); eGFR > 60 See Note
[2024-12-17 19:02] LABS: Alcohol, Blood Medical 394.1 mg/dL (0-10.0)
--- NOTE | 2024-12-17 20:11 | PC.NURSE ---
Pt is awake walking in rm. Ambulates without assist. Pt given a sandwich, chips and a drink and ate 100%. pt attempting to find someone who will pick him up.
[2024-12-18] VITALS (10 sets, daily range): BP systolic 102–146; BP diastolic 71–99; PULSE 75–93; RESP 16–30; TEMP 36.3–37.4; O2SAT 95–100
[2024-12-18] MEDS: POTASSIUM CHLORIDE 10% 20 MEQ/15 ML UDC 40 MEQ PO (02:38)
[2024-12-18] MEDS: FAMOTIDINE 20 MG TABLET 40 MG PO (03:14)
[2024-12-18] MEDS: PANTOPRAZOLE 40 MG TABLET PO (03:14)
[2024-12-18] MEDS: ONDANSETRON ODT 4 MG TABRAP PO ×2 (03:14→08:24)
[2024-12-18 03:51] LABS: Alcohol, Blood Medical 247.5 mg/dL (0-10.0); Amylase 77 U/L (30-118); Lipase 131 U/L (12-53)
--- NOTE | 2024-12-18 08:00 | PC.NURSE ---
In to assess pt. Pt with c/o anxiety, abd pain, and nausea. Provider notified, orders received. Pt asking for fluids/food. Pt given water and sandwich. Tolerated well.
[2024-12-18] MEDS: LORazepam 0.5 MG TABLET 2 MG PO (08:24)
--- NOTE | 2024-12-18 10:17 | PD.EDADDENDU ---
Emergency Room Addendum <Tiffany Nichole - Last Filed: 12/18/24 10:19> Addendum Narrative: 0600: Care assumed from the previous shift emergency physician. Past medical, surgical, social and family history reviewed. Vitals and home medications reviewed. I will assume the care of the patient at this time. Please refer to the emergency department record for history and examination from initial visit.? Physical exam by me shows patient under no acute distress at this time. 1010: Patient states that he wants to quit drinking but he does not feel safe to go home because he had bad tremors. 1017: Discussed test HPI, PMHx, lab, radiology results and/or management with hospitalist. Will admit for further evaluation and management. Accepts patient for admission. Diagnosis: - Alcohol withdrawals <Tatyana Vail MD - Last Filed: 12/18/24 16:04> Addendum Narrative: 0600: Care assumed from the previous shift emergency physician. Past medical, surgical, social and family history reviewed. Vitals and home medications reviewed. I will assume the care of the patient at this time. Please refer to the emergency department record for history and examination from initial visit.? Physical exam by me shows patient under no acute distress at this time. Per nurse patient tremulous with CIWA 17. 1010: Patient states he will stay for admit. C/o tremors, anxiety 1017: Discussed test HPI, PMHx, lab, radiology results and/or management with hospitalist. Will admit for further evaluation and management. Accepts patient for admission. Diagnosis: - Alcohol withdrawals
--- NOTE | 2024-12-18 12:18 | XR_ITS ---
Examination: Abdomen sonogram, complete Date and time of exam: December 18, 2024, 1308 hrs. Indications: Epigastric pain beginning one year ago alcohol abuse history. Technique: Multiple real-time grayscale transabdominal sonographic images of the abdomen have been obtained. Findings: Multiple gallstones Gallbladder wall 0.26 cm Common bile duct 0.3 cm Pancreatic head 2.3 cm Aorta not enlarged Liver 15 cm fatty infiltration Normal hepatopedal portal venous flow Patent IVC Right kidney 12.3 cm cortex 2.5 cm Left kidney 11.0 cm cortex 2.5 cm 13 mm left renal cyst Mild scar formation bilaterally Spleen 10.5 cm Impression: Cholelithiasis, negative for cholecystitis Fatty liver
[2024-12-18 12:26] LABS: Cardiac Risk Estimate 2.1 RATIO (4.0-6.7); Cholesterol 126 mg/dL (132-200); HDL Cholesterol 61 mg/dL (40-60); Triglycerides 403 mg/dL (30-150)
--- NOTE | 2024-12-18 13:36 | XR_ITS ---
Examination: CT abdomen with intravenous contrast CT pelvis with intravenous contrast 2-D coronal reconstructions 2-D sagittal reconstructions Date and time of exam:December 18, 2024 1611 hrs. Indications: Upper abdominal pain epigastric pain today, alcohol withdrawal CTDI: vol (mGy) 6.81 DLP: (mGycm) 422 Technique: Multiple axial sections of the abdomen and pelvis have been obtained. 64 slice high-resolution scanner used. 3 mm axial sections have been obtained, post intravenous injection 60 cc [id number] 2-D sagittal, coronal reconstructions obtained. Low dose protocols were performed. One or more of the following dose reduction techniques were used; automated exposure control, adjustment of the mA and/or KV according to patient size, use of iterative reconstruction technique. Findings: Diffuse fatty infiltration throughout the liver, no focal liver lesions Gallbladder wall is mildly thickened Spleen is not enlarged Edema is present around enlarged pancreatic head No hydronephrosis or renal calculi Aorta normal size Normal appendix No bowel obstruction Urinary bladder intact No prostatomegaly Impression: Recommend hepatobiliary sonography to exclude cholecystitis Mild acute pancreatitis, no pseudocyst
[2024-12-18] MEDS: SODIUM CHLORIDE 0.9% 1000 ML 1,000 ML 120 ML IV ×2 (14:16→22:28)
[2024-12-18] MEDS: LORazepam 2 MG/ML VIAL IV (14:16)
[2024-12-18 14:26] LABS: Basophils % (Auto) 0 % (0-2.5); Eosinophils # (Auto) 0.1 Thou/mm3 (0.0-0.5); Eosinophils % (Auto) 1 % (0-10); Hematocrit 41.5 % (41.0-53.0); Hemoglobin 15.5 g/dL (13.5-16.0); Immature Granulocytes % (Auto) 0 % (0-0); Immature Granulocytes Auto 0.03 Thou/mm3 (0.00-0.00); Lymphocytes # (Auto) 2.4 Thou/mm3 (1.0-4.8); Lymphocytes % (Auto) 30 % (10-50); Mean Corpuscular HGB Conc 37.3 g/dl (31.0-37.0); Mean Corpuscular Hemoglobin 31.5 pg (25.0-35.0); Mean Corpuscular Volume 84 fL (80-100); Monocytes # (Auto) 0.5 Thou/mm3 (0.0-0.8); Monocytes % (Auto) 6 % (0-12); Neutrophils # (Auto) 5.1 Thou/mm3 (1.8-7.7); Neutrophils % (Auto) 63 % (37-80); Nucleated Red Blood Cell % 0 /100 WBC (0); Platelet Count 212 Thou/mm3 (140-440); RDW Standard Deviation 36.3 fL (35.1-43.9); Red Blood Count 4.92 Miln/mm3 (4.50-5.90); White Blood Count 8.1 Thou/mm3 (3.8-10.6)
[2024-12-18 14:43] LABS: Amphetamine/Methamp Scrn,U Negative (Negative); Barbiturate Screen,Urine Negative (Negative); Benzodiazepines Screen,Urine Negative (Negative); Benzoylecgonine Screen, Ur Negative (Negative); Fentanyl Screen,Urine Negative (Negative); Opiate Screen,Urine Negative (Negative); THC Screen,Urine Negative (Negative)
[2024-12-18 14:46] LABS: Alanine Aminotransferase 393 U/L (10-49); Albumin, Serum 3.8 gm/dL (3.5-5.0); Albumin/Globulin Ratio 1.4 (1.2-2.2); Alkaline Phosphatase 127 U/L (46-116); Anion Gap 12 (7-16); BUN/Creatinine Ratio 16 Ratio (12-20); Bilirubin,Total 2.3 mg/dL (0.3-1.2); Blood Urea Nitrogen 11 mg/dL (9-23); Calcium 8.4 mg/dL (8.3-10.6); Calcium (Corrected) 8.6 mg/dL (8.5-10.1); Chloride 94 mMol/L (98-107); Creatinine (Component) 0.7 mg/dL (0.6-1.3); Estimated Creatinine Clearance 150.2 mL/min (>60); Globulin 2.8 gm/dL (2.3-3.5); Glucose 94 mg/dL (74-106); Osmolality,Calculated 260 (275-295); Potassium 3.3 mMol/L (3.4-5.1); Sodium 130 mMol/L (136-145); Total Protein 6.6 gm/dL (5.7-8.2); eGFR > 60 See Note
[2024-12-18 14:50] LABS: Aspartate Amino Transferase 620 U/L (0-34)
--- NOTE | 2024-12-18 14:50 | PC.SS ---
Initial assessment: this is 34 year old male pending admission to hospital services. Patient is Bulgarian speaking. Patient confirmed demographic information. Patient informs he lives at home with his friend, Conrad Devin. Patient informs he is independent with ADL's. No use of DME reported. Patient informs he does not follow up with primary care. Patient states he is here for excessive alcohol intake. Patient informs he drinks daily, about 4 cans of beer at least, reported unknown as to why he drinks daily. Patient was provided psychoeducation regarding safe substance use. The patient denied substance abuse resources at this time. Patient states he plans to return back home upon discharge. No current needs identified at this time. In case of an emergency, the patient would like his friend, Conrad to be contacted. D/c plan: Home Next of kin: friend, Conrad Beltran
--- NOTE | 2024-12-18 15:26 | ESHP_ITS ---
<Statement entered by Lu Darby MD - 12/18/24 20:53> 34-year-old male with past medical history of alcohol abuse presented to ED with chief complaints of abdominal pain. On presentation patient was hemodynamically stable, however was complaining of right upper quadrant pain along with radiation to the back. Evidence of pancreatitis on CT, slightly elevated lipase. Further labs revealed mild hyponatremia with hypokalemia, and alcoholic transaminitis. Patient also stated that he drinks about 32 ounces of beer per day, especially for the past 2 weeks he has been drinking consistently. On presentation CIWA was 19, patient received alcohol withdrawal treatment. Patient was admitted for acute alcohol withdrawal and acute pancreatitis treatment and management. Patient started on gabapentin 200 twice daily, was placed to CIWA protocol, will continue to trend transaminitis, Patient was placed on telemetry for close monitoring. I personally saw and examined the patient and discussed the assessment and plan with the entire medicine team, including my attending Dr. Haque, Lu Darby M.D. PGY-2 Disclaimer: Despite multiple revisions, due to the dictation software being used, the document bellow may not be free of grammatical errors including phonetic/typographic errors. However, this does not deter from our commitment to providing health care in the patient's best interest in mind. Documentation for date of: 12/18/24 HPI History of Present Illness History of present illness: CC: Alcohol Use Patient is a 34-year-old male with a past medical history of alcohol use disorder who denied any chronic past medical history and denied any recurrent medication being taken. Patient presented to the emergency room with a chief complaint of left upper quadrant abdominal pain radiating across abdomen to right side of upper quadrant. Patient stated he has an alcohol use disorder and typically drinks about 4X 32 ounce beers per day which has been ongoing for the past 2 weeks consistently. Patient has been drinking over 5 years. Patient stated he has no family locally and feels he can turn to alcohol. Patient denied any past medical history of seizures. Patient denied any hallucinations visual or auditory. Patient denied any recently loss of consciousness. Patient stated several episodes of emesis. Patient denied hematemesis or hemoptysis. Patient denied any GI bleeding. Patient denied any sick contacts. Admitted for alcohol use disorder and acute pancreatitis on 12/18/2024 w/ CIWA score of 19. ER Course: Vitals BP 140/98, HR 93, RR 18, T 97.6, SpO2 98 WBC 8.1 Na 130, osmolarity 260, K 3.3, chloride 94, Carbon dioxide 24, Anion gap 12, BUN 11, Cr 0.7, GFR >60 Total August 2.3, AST 620, ALT 393, Alkaline Phosphatase Lipid: Triglycerides 403, Cholesterol 126, HDL 61, LDL TNP Medication: 1 bolus, ER folic Acid and Thiamine, Potassium, Lorazepam 2 mg IVP X1 PMH: Alcohol Use Disorder Denied HTN or DM Past Surgical History: None Home Medication: None Social History: Alcohol Use Disorder >5+ Denied illicit drug use Allergies: None Code Status: Full Code Review of Systems Review of Systems Narrative Review of Systems: General appearance: NO weight change, NO fatigue, NO weakness, NO fever, NO chills, NO night sweats, No cough, Yes TREMORS Skin: NO rash, NO itching, NO sores, NO moles HEENT: NO Trauma, NO nausea, NO vomiting, NO visual changes, NO blurry vision, NO double vision, NO tinnitus, NO vertigo, NO ear discharge, NO rhinorrhea, NO stuffiness, NO sneezing, NO allergy, NO epistaxis. NO Hoarseness, NO sore throat, NO swollen neck. Cardiac: YES Palpitations, NO dyspnea on exertion, NO orthopnea, NO paroxysmal nocturnal dyspnea, NO edema Respiratory: NO Shortness of Breath, NO Wheezing, NO Cough, NO Sputum, NO hemoptysis GI:NO appetite, YES nausea, YES vomiting, NO dysphagia, NO changes in bowel frequency, NO stool color, NO diarrhea, NO constipation, NO hemetemesis, NO hemorrhoids, NO melena, NO hematechezia, NO abdominal pain, NO jaundice Renal: NO frequency, NO hesitancy, NO urgency, NO hematuria, NO nocturia, NO incontinence MSK: NO muscle weakness, NO gout, NO arthritis, NO muscle stiffness Neuro: NO headaches, NO tremors, NO weakness, NO paralysis, NO seizures, NO loss of consciousness, NO numbness. Hem: NO anemia, NO easy bruising/bleeding, NO petechiae, NO purpura Endo: NO heat/cold intolerance, NO excessive sweating, NO polyuria, NO polydipsia, NO polyphagia, NO thyroid problems, NO diabetes Pysch: NO mood, NO anxiety, NO depression Exam Vital Signs Temp Pulse Resp BP Pulse Ox O2 Del Method 99.3 F 80 18 132/83 H 97 Room Air 12/18/24 14:34 12/18/24 14:34 12/18/24 14:34 12/18/24 14:34 12/18/24 14:34 12/18/24 14:34 Narrative Exam General Appearance: Alert & Oriented X3, well-nourished MALE who is lying in bed in with anxiety w/ increased tremors HEENT: Skull symmetrical and atraumatic. Conjunctivae pin and moist. Pupils equal, round, reactive to light and accommodation (PERRL). External ear without lesion or discharge. Straight, nares patient, mucosa pink, no discharge. No thyroid nodule appreciated. No cervical lymphadenopathy. Cardio: Normal Rate and Rhythm with S1 and S2 heart sounds. No murmurs or extra heart sounds auscultated. No bruits on carotid auscultation. No peripheral edema or cyanosis. Lungs: Symmetric with good expansion. Chest and back non-tender. Breath sounds vesicular without crackles, wheezing or rhonchi Abdomen: left right upper quadrant tender, no rebound tenderness, Non-distended, Normal Reactive Bowel Sounds Neuro: Alert, cooperative, oriented to person, place, and time. Speech clear. CN grossly intact. Upper motor strength 5/5 and Lower motor strength 5/5. Sensation intact. Results: Labs 12/18/24 14:20 12/18/24 14:20 Labs: Short CBC 12/17/24 12/18/24 Range/Units 17:50 14:20 WBC 4.9 8.1 D (3.8-10.6) Thou/mm3 Hgb 17.0 H 15.5 (13.5-16.0) g/dL Hct 45.1 41.5 (41.0-53.0) % Plt Count 231 D 212 (140-440) Thou/mm3 BMP 12/17/24 12/18/24 17:50 14:20 Sodium 134 L 130 L Potassium 3.3 L 3.3 L Chloride 96 L 94 L Carbon Dioxide 24.8 24.0 BUN 17 11 Creatinine 0.8 0.7 Glucose 168 H 94 D Calcium 8.6 8.4 Liver Function 12/17/24 12/18/24 Range/Units 17:50 14:20 Total Bilirubin 1.1 2.3 H D (0.3-1.2) mg/dL AST 717 H* 620 H* (0-34) U/L ALT 418 H 393 H (10-49) U/L Alkaline Phosphatase 115 127 H (46-116) U/L Albumin 4.3 3.8 D (3.5-5.0) gm/dL Quality Measures Quality Measures VTE prophylaxis Medications Home Medications and Allergies Allergies Allergy/AdvReac Type Severity Reaction Status Date / Time No Known Allergies Allergy Verified 12/12/24 11:40 Visit Medications Hydrocodone Bitart/Acetaminophen (Hydrocodone/Apap 5/325 Tablet) 1 tab PO Q4HR PRN PRN Reason: PAIN SCALE 4-6 (Moderate Stop: 12/23/24 11:33 Hydrocodone Bitart/Acetaminophen (Hydrocodone/Apap 10/325 Tab) 1 tab PO Q4HR PRN PRN Reason: PAIN SCALE 7-10 (Severe Stop: 12/23/24 11:33 Ascorbic Acid (Ascorbic Acid 250 Mg Tablet) 250 mg PO BID [facility] Stop: 01/17/25 20:59 Dextrose (Dextrose 50%-Water Inj 50 Ml Syringe) 25 ml IV Q15MIN PRN PRN Reason: BG 50-70 responsive npo pt Stop: 01/17/25 11:40 Dextrose (Dextrose 50%-Water Inj 50 Ml Syringe) 50 ml IV Q15MIN PRN PRN Reason: BG <50 OR BG <70 & pt unresponsive Stop: 01/17/25 11:40 Folic Acid (Folic Acid 1 Mg Tablet) 1 mg PO QDAY JOSE[facility]INE Stop: 01/18/25 08:59 Gabapentin (Gabapentin 100 Mg Capsule) 200 mg PO BID JOSEPHINE Stop: 01/17/25 20:59 Glucagon (Glucagon Inj 1 Mg Vial) 1 mg IM Q15MIN PRN PRN Reason: BG <70, and no IV access Heparin Sodium (Porcine) (Heparin Sod Inj 5000 Unit/Ml Vial) 5,000 unit SC Q12HR JOSEPHINE Stop: 01/01/25 20:59 Sodium Chloride (Ns) 1,000 mls @ 120 mls/hr IV .Q8H20M JOSEPHINE Stop: 01/18/25 02:59 Sodium Chloride (Ns) 1,000 mls @ 120 mls/hr IV .Q8H20M ONE Stop: 12/18/24 22:19 Last Admin: 12/18/24 14:16 Dose: 120 mls/hr Insulin Human Lispro (Insulin Lispro (Admelog) 1 Unit/0.01 Ml Unit) 0 unit SC Q6HR JOSEPHINE; Protocol Stop: 01/17/25 11:59 Last Admin: 12/18/24 14:00 Dose: Not Given Lorazepam (Lorazepam 0.5 Mg Tablet) 0.5 mg PO Q4HR PRN PRN Reason: CIWA Score 2-6 Stop: 12/23/24 11:41 Lorazepam (Lorazepam 2 Mg/Ml Vial) 1 mg IV Q2HR PRN PRN Reason: CIWA SCORE 7-13 Stop: 12/23/24 11:41 Lorazepam (Lorazepam 2 Mg/Ml Vial) 2 mg IV Q2HR JOSEPHINE Stop: 12/23/24 11:59 Last Admin: 12/18/24 14:16 Dose: 2 mg Ondansetron HCl (Ondansetron Inj 2 Mg/Ml Inj 2 Ml) 4 mg IV Q6H PRN; Protocol PRN Reason: NAUSEA OR VOMITING Stop: 01/17/25 11:33 Pantoprazole Sodium (Pantoprazole Inj 40 Mg Vial) 40 mg IV QDAY [facility] Stop: 01/19/25 08:59 Sennosides (Senna Tablet) 1 tab PO QDAY PRN; Protocol PRN Reason: constipation Stop: 01/17/25 11:33 Thiamine HCl (Thiamine 100 Mg Tablet) 100 mg PO QDAY JOSEPHINE Stop: 01/18/25 08:59 Discontinued Medications Acetaminophen (Acetaminophen 325 Mg Tablet) 650 mg PO Q6H PRN PRN Reason: Mild Pain 1-3 or Fever >100.3 Stop: 01/17/25 11:33 Famotidine (Famotidine 20 Mg Tablet) 40 mg PO X1 ONE Stop: 12/18/24 03:00 Last Admin: 12/18/24 03:14 Dose: 40 mg Flumazenil (Flumazenil Inj 0.1 Mg/Ml Vial 10 Ml) 0.2 mg IVP X1 ONE Stop: 12/17/24 21:07 Last Admin: 12/17/24 23:09 Dose: Not Given Folic Acid (Folic Acid Inj 1 Mg/0.2 Ml) 1 mg IVP X1 ONE Stop: 12/17/24 17:23 Last Admin: 12/17/24 18:16 Dose: 1 mg Sodium Chloride (Ns) 1,000 mls @ 999 mls/hr IV .Q1H1M ONE Stop: 12/17/24 18:22 Last Infusion: 12/17/24 19:25 Dose: Infused Lactated Ringer's (Lactated Ringers) 1,000 mls @ 1,000 mls/hr IV .Q1H ONE Stop: 12/18/24 02:59 Last Admin: 12/18/24 02:43 Dose: Not Given Sodium Chloride (Ns) 1,000 mls @ 80 mls/hr IV .[id number] ONE Stop: 12/19/24 02:29 Sodium Chloride (Ns) 1,000 mls @ 80 mls/hr IV .[id number] JOSEPHINE Stop: 01/18/25 02:59 Lorazepam (Lorazepam 0.5 Mg Tablet) 2 mg PO X1 ONE Stop: 12/18/24 08:21 Last Admin: 12/18/24 08:24 Dose: 2 mg Naloxone HCl (Naloxone Inj 0.4 Mg/Ml Vial) 2 mg IV X1 ONE Stop: 12/17/24 21:07 Last Admin: 12/17/24 23:09 Dose: Not Given Ondansetron HCl (Ondansetron Odt 4 Mg Tabrap) 4 mg PO X1 ONE; Protocol Stop: 12/18/24 03:00 Last Admin: 12/18/24 03:14 Dose: 4 mg Ondansetron HCl (Ondansetron Odt 4 Mg Tabrap) 4 mg PO X1 ONE; Protocol Stop: 12/18/24 08:21 Last Admin: 12/18/24 08:24 Dose: 4 mg Pantoprazole Sodium (Pantoprazole 40 Mg Tablet) 40 mg PO X1 ONE Stop: 12/18/24 03:00 Last Admin: 12/18/24 03:14 Dose: 40 mg Potassium Chloride (Potassium Chloride 10% 20 Meq/15 Ml Udc) 40 meq PO X1 ONE Stop: 12/18/24 02:01 Last Admin: 12/18/24 02:38 Dose: 40 meq Thiamine HCl (Thiamine Inj 100 Mg/Ml Vial 2 Ml) 100 mg IVP X1 ONE Stop: 12/17/24 17:23 Last Admin: 12/17/24 18:16 Dose: 100 mg Assessment & Plan Plan Patient is a 34-year-old male with a past medical history of alcohol use disorder who was admitted on 12/18/2024 for alcohol withdrawl and acute pancreatitis. #Acute Pancreatitis Presented w/ abdominal pain and evidence of pancreatis on CT. Acute pancreatitis likely secondary to alcohol use disorder. Less likely secondary to triglycerides. vs Cholecystisis Diagnostics: Amylase [address] Ab (12/18/2024): Recommend hepatobiliary sonography to exclude cholecystitis. Mild acute pancreatitis, no pseudocyst. Gallbladder wall thickened, no stones noted. US Abdomen: Cholelithiasis/ multiple gallstones, negative for cholecystits, fatty liver, Common bile duct 0.3. Plan: -NPO -NS @120 cc, reduce if BP >160 -Asorbic Acid -Pain management -Zofran #Alcohol Withdrawal #Alcohol Use Disorder Patient consumed several 32 oz beers per day for over 5 years, but increased consumption over the last 2 weeks. Ethanol levels >247 Plan -urine toxicology -Folic and Thiamine -CIWA -admit to tele #Alcohol Hepatitis #Alcohol-Related Fatty liver Disease #Transaminitis Patient has a past medical history of alcohol use disorder with AST X 2 greater than ALTs. Previous serology was negative for hepatitis. Acute liver injury can not be ruled out if liver enzymes continue to rise. AST 717 ALT 418 (12/17/2024); AST 620 and ALT 393, Total Bili 2.3 Plan -Treat underlying alcohol use disorder -No steroids at this time #Hyperbilirubinemia Hyperbilirubinemia, likely secondary to alcohol use disorder vs less likely secondary to acute cholangitis as there is no fever or leukocytosis as well as patent common bile duct as noted on US. Plan -Continue to monitor total bili. #Mild Hyponatremia, Hypoosmolar #Hypokalemia Given history of alcohol use disorder and emesis likely secondary to poor oral intake. Plan -Normal Saline -K repleated -Continue to monitor Na -consider urine lytes #Cholelithiasis no acute intervention outpatient follow up Health Maintenance: Disp: Pt is currently admitted to floors for further management of acute pancreatitis and alcohol withdrawal, awaiting improve pain FEN: NPO, NS DVT: on subQ heparin Code: Full Code - The patient's plan was discussed with attending Dr. Haque and senior residents Dr. Wilner Oro MD PGY1 Internal Medicine
--- NOTE | 2024-12-18 16:04 | PC.NURSE ---
pt taken to CT.
[2024-12-18] MEDS: HYDROcodone/APAP 10/325 TAB PO ×2 (17:41→22:27)
[2024-12-18] MEDS: ONDANSETRON INJ 2 MG/ML INJ 2 ML 4 MG IV (17:42)
[2024-12-18] MEDS: LORazepam 2 MG/ML VIAL 1 MG IV ×2 (17:50→20:12)
--- NOTE | 2024-12-18 19:21 | PC.NURSE ---
Pt came to floor 182, pt complaining of pain in upper stomach and nausea. Pt already received pain medication and zofran in ED before coming up to tele, notified shift manager. Pt feeling less agitated and CIWA down to 9.
[2024-12-18] MEDS: GABAPENTIN 100 MG CAPSULE 200 MG PO (20:11)
[2024-12-18] MEDS: ASCORBIC ACID 250 MG TABLET PO (20:11)
[2024-12-18] MEDS: HYDROmorphone INJ 2 MG/ML VIAL 0.5 MG IVP (20:11)
[2024-12-18] MEDS: HEPARIN SOD INJ 5000 UNIT/ML VIAL SC (20:12)
[2024-12-18] MEDS: LORazepam 0.5 MG TABLET PO (22:27)
[2024-12-19] VITALS (8 sets, daily range): BP systolic 132–148; BP diastolic 89–96; PULSE 76–108; RESP 13–97; TEMP 35.9–36.3; O2SAT 97–99; BMI 23.8
[2024-12-19] MEDS: HYDROcodone/APAP 10/325 TAB PO ×3 (02:46→19:15)
[2024-12-19] MEDS: ONDANSETRON INJ 2 MG/ML INJ 2 ML 4 MG IV ×2 (02:47→19:14)
[2024-12-19] MEDS: LORazepam 0.5 MG TABLET PO (02:47)
[2024-12-19 05:13] LABS: Basophils % (Auto) 0 % (0-2.5); Eosinophils % (Auto) 0 % (0-10); Hematocrit 38.2 % (41.0-53.0); Immature Granulocytes % (Auto) 1 % (0-0); Immature Granulocytes Auto 0.04 Thou/mm3 (0.00-0.00); Lymphocytes # (Auto) 1.2 Thou/mm3 (1.0-4.8); Lymphocytes % (Auto) 15 % (10-50); Mean Corpuscular HGB Conc 36.6 g/dl (31.0-37.0); Mean Corpuscular Volume 85 fL (80-100); Monocytes # (Auto) 0.3 Thou/mm3 (0.0-0.8); Monocytes % (Auto) 4 % (0-12); Neutrophils # (Auto) 6.2 Thou/mm3 (1.8-7.7); Neutrophils % (Auto) 79 % (37-80); Nucleated Red Blood Cell % 0 /100 WBC (0); Platelet Count 174 Thou/mm3 (140-440); RDW Standard Deviation 36.4 fL (35.1-43.9); Red Blood Count 4.51 Miln/mm3 (4.50-5.90); White Blood Count 7.8 Thou/mm3 (3.8-10.6)
[2024-12-19 05:38] LABS: Alanine Aminotransferase 298 U/L (10-49); Albumin, Serum 3.4 gm/dL (3.5-5.0); Albumin/Globulin Ratio 1.4 (1.2-2.2); Alkaline Phosphatase 100 U/L (46-116); Anion Gap 10 (7-16); Aspartate Amino Transferase 381 U/L (0-34); BUN/Creatinine Ratio 13 Ratio (12-20); Blood Urea Nitrogen 8 mg/dL (9-23); Calcium (Corrected) 8.5 mg/dL (8.5-10.1); Carbon Dioxide 25.4 mMol/L (20.0-31.0); Chloride 97 mMol/L (98-107); Creatinine (Component) 0.6 mg/dL (0.6-1.3); Estimated Creatinine Clearance 162.2 mL/min (>60); Globulin 2.5 gm/dL (2.3-3.5); Glucose 113 mg/dL (74-106); Magnesium 1.7 mg/dL (1.6-2.6); Osmolality,Calculated 263 (275-295); Phosphorous 3.5 mg/dL (2.4-5.1); Potassium 3.3 mMol/L (3.4-5.1); Sodium 132 mMol/L (136-145); Thyroid Stimulating Hormone 1.94 uIU/mL (0.55-4.78); Total Protein 5.9 gm/dL (5.7-8.2); eGFR > 60 See Note
[2024-12-19] MEDS: SODIUM CHLORIDE 0.9% 1000 ML 1,000 ML 120 ML IV ×2 (06:28→15:04)
[2024-12-19 06:54] LABS: Glucose Estimated Average 103 mg/dL (80-131); Hemoglobin A1C 5.2 % Hgb (4.8-6.0)
[2024-12-19] MEDS: THIAMINE 100 MG TABLET PO (08:40)
[2024-12-19] MEDS: ASCORBIC ACID 250 MG TABLET PO ×2 (08:40→20:31)
[2024-12-19] MEDS: GABAPENTIN 100 MG CAPSULE 200 MG PO ×2 (08:40→20:31)
[2024-12-19] MEDS: HEPARIN SOD INJ 5000 UNIT/ML VIAL SC ×2 (08:40→20:32)
[2024-12-19] MEDS: FOLIC ACID 1 MG TABLET PO (08:40)
[2024-12-19] MEDS: POTASSIUM CHLORIDE 20 mEq TABCR 40 MEQ PO (08:40)
--- NOTE | 2024-12-19 13:12 | ESPR_ITS ---
<Statement entered by Lu Darby MD - 12/19/24 15:30> No acute overnight event. Saline the morning. 9, patient continued to be on gabapentin and Ativan per [facility] protocol. Patient also stated that abdominal pain significantly improved, today was started clear liquid diet, will advance as tolerated, monitor, AST, ALT down trended, will continue to monitor. Anticipate discharge in the next 24 hours I personally saw and examined the patient and discussed the assessment and plan with the entire medicine team, including my attending , Lu Darby M.D. PGY-2 Disclaimer: Despite multiple revisions, due to the dictation software being used, the document bellow may not be free of grammatical errors including phonetic/typographic errors. However, this does not deter from our commitment to providing health care in the patient's best interest in mind. Documentation for date of: 12/19/24 Subjective Subjective Interval history: No overnight events reported overnight. No emesis reported by patient with nausea still present. Patient denied any hallucinations either visual or auditory. No tremors noted on physical exam. Patient denied any hemoptysis. Patient denied any lower GI bleeding. Pain still present in the left upper quadrant radiating across abdomen. Advance diet as tolerated towards cardiac diet. D/C IV fluids. Potassium replacement given. AST/ALT continue to improved. Total Bili remains elevated at 3.0 but denied any fever, chills, WBC remain normal and biliary duct is normal as normal pancreas. Exam Vital Signs Temp Pulse Resp BP Pulse Ox O2 Del Method 96.8 F 82 17 148/92 H 98 Room Air 12/19/24 08:00 12/19/24 08:00 12/19/24 08:00 12/19/24 08:00 12/19/24 08:00 12/19/24 08:00 Narrative Exam General Appearance: Alert & Oriented X3, well-nourished MALE who is lying in bed in with anxiety w/ increased tremors HEENT: Skull symmetrical and atraumatic. Conjunctivae pin and moist. Pupils equal, round, reactive to light and accommodation (PERRL). External ear without lesion or discharge. Straight, nares patient, mucosa pink, no discharge. No thyroid nodule appreciated. No cervical lymphadenopathy. Cardio: Normal Rate and Rhythm with S1 and S2 heart sounds. No murmurs or extra heart sounds auscultated. No bruits on carotid auscultation. No peripheral edema or cyanosis. Lungs: Symmetric with good expansion. Chest and back non-tender. Breath sounds vesicular without crackles, wheezing or rhonchi Abdomen: left right upper quadrant tender, no rebound tenderness, Non-distended, Normal Reactive Bowel Sounds Neuro: Alert, cooperative, oriented to person, place, and time. Speech clear. CN grossly intact. Upper motor strength 5/5 and Lower motor strength 5/5. Sensation intact. Objective Labs 12/19/24 04:17 12/19/24 04:17 Labs: Laboratory Results - last 24 hr 12/18/24 12/18/24 12/19/24 14:08 14:20 04:17 WBC 8.1 D 7.8 RBC 4.92 4.51 Hgb 15.5 14.0 Hct 41.5 38.2 L MCV 84 85 MCH 31.5 31.0 MCHC 37.3 H 36.6 RDW Std Deviation 36.3 36.4 Plt Count 212 174 D Neut % (Auto) 63 79 Lymph % (Auto) 30 15 [place] % (Auto) 6 4 Eos % (Auto) 1 0 Baso % (Auto) 0 0 Neut # (Auto) 5.1 6.2 Lymph # (Auto) 2.4 1.2 [place] # (Auto) 0.5 0.3 Eos # (Auto) 0.1 0.0 Baso # (Auto) 0.0 0.0 Immature Gran # (Auto) 0.03 H 0.04 H Absolute Nucleated RBC 0.00 0.00 Immature Gran % 0 1 H Nucleated RBC % 0 0 Sodium 130 L 132 L Potassium 3.3 L 3.3 L Chloride 94 L 97 L Carbon Dioxide 24.0 25.4 Anion Gap 12 10 BUN 11 8 L Creatinine 0.7 0.6 Estim Creat Clear Calc 150.2 162.2 eGFR > 60 > 60 BUN/Creatinine Ratio 16 13 Glucose [address] Glu mg/dL 103 Hemoglobin A1c 5.2 Calculated Osmolality 260 L 263 L Calcium 8.4 8.0 L Corrected Calcium 8.6 8.5 Phosphorus 3.5 Magnesium 1.7 Total Bilirubin 2.3 H D 3.0 H D AST 620 H* 381 H ALT 393 H 298 H Alkaline Phosphatase 127 H 100 D Total Protein 6.6 5.9 Albumin 3.8 D 3.4 L Globulin 2.8 2.5 Albumin/Globulin Ratio 1.4 1.4 TSH 1.94 Urine Opiates Screen Negative Urine Fentanyl Screen Negative Ur Barbiturates Screen Negative U Amphetamin/Meth Scrn Negative U Benzodiazepines Scrn Negative U Cocaine Metab Screen Negative U Marijuana (THC) Screen Negative Quality Measures Quality Measures VTE prophylaxis Assessment & Plan Assessment Current Active Medications: Generic Name Dose Route Start Last Admin Trade Name Freq PRN Reason Stop Dose Admin Hydrocodone Bitart/Acetaminophen 1 tab 12/18/24 11:34 Hydrocodone/Apap 5/325 Tablet PO 12/23/24 11:33 Q4HR PRN PAIN SCALE 4-6 (Moderate Hydrocodone Bitart/Acetaminophen 1 tab 12/18/24 11:34 12/19/24 02:46 Hydrocodone/Apap 10/325 Tab PO 12/23/24 11:33 1 tab Q4HR PRN Administration PAIN SCALE 7-10 (Severe Ascorbic Acid 250 mg 12/18/24 21:00 12/19/24 08:40 Ascorbic Acid 250 Mg Tablet PO 01/17/25 20:59 250 mg BID JOSEPHINE Administration Dextrose 25 ml 12/18/24 11:41 Dextrose 50%-Water Inj 50 Ml Syringe IV 01/17/25 11:40 Q15MIN PRN BG 50-70 responsive npo pt Dextrose 50 ml 12/18/24 11:41 Dextrose 50%-Water Inj 50 Ml Syringe IV 01/17/25 11:40 Q15MIN PRN BG <50 OR BG <70 & pt unresponsive Folic Acid 1 mg 12/19/24 09:00 12/19/24 08:40 Folic Acid 1 Mg Tablet PO 01/18/25 08:59 1 mg QDAY JOSEPHINE Administration Gabapentin 200 mg 12/18/24 21:00 12/19/24 08:40 Gabapentin 100 Mg Capsule PO 01/17/25 20:59 200 mg BID JOSEPHINE Administration Glucagon 1 mg 12/18/24 11:41 Glucagon Inj 1 Mg Vial IM Q15MIN PRN BG <70, and no IV access Heparin Sodium (Porcine) 5,000 unit 12/18/24 21:00 12/19/24 08:40 Heparin Sod Inj 5000 Unit/Ml Vial SC 01/01/25 20:59 5,000 unit Q12HR JOSEPHINE Administration Sodium Chloride 1,000 mls @ 120 mls/hr 12/19/24 03:00 12/19/24 06:28 Ns IV 01/18/25 02:59 120 mls/hr .Q8H20M JOSEPHINE Administration Insulin Human Lispro 0 unit 12/18/24 12:00 12/19/24 13:02 Insulin Lispro (Admelog) 1 Unit/0.01 Ml Unit SC 01/17/25 11:59 Not Given Q6HR JOSEPHINE Protocol Lorazepam 0.5 mg 12/18/24 11:42 12/19/24 02:47 Lorazepam 0.5 Mg Tablet PO 12/23/24 11:41 0.5 mg Q4HR PRN Administration CIWA Score 2-6 Lorazepam 1 mg 12/18/24 11:42 12/18/24 20:12 Lorazepam 2 Mg/Ml Vial IV 12/23/24 11:41 1 mg Q2HR PRN Administration CIWA SCORE 7-13 Lorazepam 2 mg 12/18/24 17:57 Lorazepam 2 Mg/Ml Vial IV 12/23/24 11:59 Q2HR PRN CIWA [id number] Ondansetron HCl 4 mg 12/18/24 11:34 12/19/24 02:47 Ondansetron Inj 2 Mg/Ml Inj 2 Ml IV 01/17/25 11:33 4 mg Q6H PRN Administration NAUSEA OR VOMITING Protocol Pantoprazole Sodium 40 mg 12/20/24 09:00 Pantoprazole Inj 40 Mg Vial IV 01/19/25 08:59 QDAY [facility] Sennosides 1 tab 12/18/24 11:34 Senna Tablet PO 01/17/25 11:33 QDAY PRN constipation Protocol Thiamine HCl 100 mg 12/19/24 09:00 12/19/24 08:40 Thiamine 100 Mg Tablet PO 01/18/25 08:59 100 mg QDAY [facility] Administration Plan Patient is a 34-year-old male with a past medical history of alcohol use disorder who was admitted on 12/18/2024 for alcohol withdrawl and acute pancreatitis. #Acute Pancreatitis Presented w/ abdominal pain and evidence of pancreatis on CT. Acute pancreatitis likely secondary to alcohol use disorder. Less likely secondary to triglycerides. vs Cholecystisis pancreatitis as pancrease does not appear enlarged Diagnostics: Amylase [address] Ab (12/18/2024): Recommend hepatobiliary sonography to exclude cholecystitis. Mild acute pancreatitis, no pseudocyst. Gallbladder wall thickened, no stones noted. US Abdomen: Cholelithiasis/ multiple gallstones, negative for cholecystits, fatty liver, Common bile duct 0.3. Plan: -Advance Diet towards cardiac -NS @120 cc, reduce if BP >160, D/Cd -Asorbic Acid -Pain management -Zofran #Alcohol Withdrawal #Alcohol Use Disorder Patient consumed several 32 oz beers per day for over 5 years, but increased consumption over the last 2 weeks. Ethanol levels >247 CIWA (12/19/2024) 5 Utox Negative Plan -Folic and Thiamine -CIWA -admit to tele #Alcohol Hepatitis #Alcohol-Related Fatty liver Disease #Transaminitis, improved Patient has a past medical history of alcohol use disorder with AST X 2 greater than ALTs. Previous serology was negative for hepatitis. Acute liver injury can not be ruled out if liver enzymes continue to rise. AST 717 ALT 418 (12/17/2024); AST 620 and ALT 393, Total Bili 2.3->12/19/2024 AST 381, ALT 298 Total Bili 3.0 Maddrey's Score: 5.3 points Plan -Treat underlying alcohol use disorder -No steroids at this time -Hold Atorvastatin given transaminitis #Hyperbilirubinemia Hyperbilirubinemia, likely secondary to alcohol use disorder vs less likely secondary to acute cholangitis as there is no fever or leukocytosis as well as patent common bile duct as noted on US. Plan -Continue to monitor total bili. #Mild Hyponatremia, Hypoosmolar #Hypokalemia Given history of alcohol use disorder and emesis likely secondary to poor oral intake. Plan -K repleated 40 meq -Continue to monitor Na -consider urine lytes #Cholelithiasis no acute intervention outpatient follow up Health Maintenance: Disp: Pt is currently admitted to floors for further management of acute pancreatitis and alcohol withdrawal, awaiting improve pain FEN: clear liquids-->advance towards cardiac diet as tolerated. DVT: on subQ heparin Code: Full Code - The patient's plan was discussed with attending Dr. Haque and senior residents Dr. Wilner Oro MD PGY1 Internal Medicine Attending Provider Attestation/Addendum I have examined the patient, reviewed labs and imaging findings, discussed the case with the resident(s), and reviewed entered orders. I agree with the plan of care as outlined in this note, with these additional summaries/recommendations: Patient seen at bedside. No acute overnight events. Patient has no new symptoms to report today and seen eating lunch with no complaints. Patient admitted for acute alcohol withdrawal and receiving CIWA. Scheduled Librium added as well given patient's history of alcohol withdrawal and previous ICU admission for Precedex. customer technical services manager consult for resources. Add folic acid and thiamine. U tox negative and ethyl alcohol level of 355.8. No evdidence of DT or alcoholic hallucinosis at this time. Mild transaminitis present and abdominal ultrasound showed cholelithiasis, mild hepatomegaly, and appendicitis. No evidence of appendicitis on physical exam and ruled out. Lipase minimally elevated although no evidence of pancreatitis and does not meet 2 out of 3 diagnostic criteria at this time. Continue to monitor patient's withdrawal symptoms and we will treat aggressively. Repeat hematology and chemistry panel in AM. Dr. Castellanos
--- NOTE | 2024-12-19 15:26 | PC.SS ---
rounding note: Advance diet. Continue CIWA protocol continued. Possible d/c
[2024-12-20] VITALS: BP 124/75; PULSE 68; PULSE 70; RESP 18; TEMP 36.1; O2SAT 99
[2024-12-20] MEDS: HYDROcodone/APAP 5/325 TABLET 1 TAB PO (00:27)
[2024-12-20] MEDS: MELATONIN 3 MG TABLET 6 MG PO (01:40)
[2024-12-20 04:00] VITALS: BP 138/94; PULSE 68; PULSE 82; RESP 18; TEMP 36.1; O2SAT 99
[2024-12-20 05:23] LABS: Basophils % (Auto) 0 % (0-2.5); Eosinophils # (Auto) 0.2 Thou/mm3 (0.0-0.5); Eosinophils % (Auto) 2 % (0-10); Hematocrit 38.9 % (41.0-53.0); Hemoglobin 14.1 g/dL (13.5-16.0); Immature Granulocytes % (Auto) 0 % (0-0); Immature Granulocytes Auto 0.02 Thou/mm3 (0.00-0.00); Lymphocytes # (Auto) 1.8 Thou/mm3 (1.0-4.8); Lymphocytes % (Auto) 29 % (10-50); Mean Corpuscular HGB Conc 36.2 g/dl (31.0-37.0); Mean Corpuscular Hemoglobin 31.8 pg (25.0-35.0); Mean Corpuscular Volume 88 fL (80-100); Monocytes # (Auto) 0.5 Thou/mm3 (0.0-0.8); Monocytes % (Auto) 8 % (0-12); Neutrophils # (Auto) 3.7 Thou/mm3 (1.8-7.7); Neutrophils % (Auto) 60 % (37-80); Nucleated Red Blood Cell % 0 /100 WBC (0); Platelet Count 151 Thou/mm3 (140-440); Red Blood Count 4.44 Miln/mm3 (4.50-5.90); White Blood Count 6.1 Thou/mm3 (3.8-10.6)
[2024-12-20 06:00] VITALS: BMI 23.8
[2024-12-20 06:10] LABS: Alanine Aminotransferase 183 U/L (10-49); Albumin, Serum 3.7 gm/dL (3.5-5.0); Albumin/Globulin Ratio 1.5 (1.2-2.2); Alkaline Phosphatase 91 U/L (46-116); Anion Gap 7 (7-16); Aspartate Amino Transferase 142 U/L (0-34); BUN/Creatinine Ratio 8 Ratio (12-20); Blood Urea Nitrogen < 5 mg/dL (9-23); Calcium 8.5 mg/dL (8.3-10.6); Calcium (Corrected) 8.7 mg/dL (8.5-10.1); Carbon Dioxide 29.9 mMol/L (20.0-31.0); Chloride 96 mMol/L (98-107); Creatinine (Component) 0.6 mg/dL (0.6-1.3); Estimated Creatinine Clearance 162.2 mL/min (>60); Globulin 2.5 gm/dL (2.3-3.5); Glucose 112 mg/dL (74-106); Magnesium 1.9 mg/dL (1.6-2.6); Osmolality,Calculated 264 (275-295); Phosphorous 2.3 mg/dL (2.4-5.1); Potassium 3.5 mMol/L (3.4-5.1); Sodium 133 mMol/L (136-145); Total Protein 6.2 gm/dL (5.7-8.2); eGFR > 60 See Note
[2024-12-20 06:17] LABS: Bilirubin,Total 1.4 mg/dL (0.3-1.2)
[2024-12-20 08:00] VITALS: BP 117/90; PULSE 85; PULSE 86; RESP 14; TEMP 36.4; O2SAT 99
[2024-12-20] MEDS: ASCORBIC ACID 250 MG TABLET PO (08:26)
[2024-12-20] MEDS: NAPH,KPH MBDB 1 PACKET (1.5 GM) PO (08:26)
[2024-12-20] MEDS: HEPARIN SOD INJ 5000 UNIT/ML VIAL SC (08:26)
[2024-12-20] MEDS: POTASSIUM CHLORIDE 20 mEq TABCR PO (08:26)
[2024-12-20] MEDS: THIAMINE 100 MG TABLET PO (08:26)
[2024-12-20] MEDS: GABAPENTIN 100 MG CAPSULE PO (08:26)
[2024-12-20] MEDS: PANTOPRAZOLE INJ 40 MG VIAL IV (08:26)
[2024-12-20] MEDS: FOLIC ACID 1 MG TABLET PO (08:26)
--- NOTE | 2024-12-20 11:37 | PC.SS ---
Follow up note: SS met with patient with wastewater operator line. Patient is more alert/oriented. He confirmed he will be going back home with friends. SS provided patient with substance abuse resources. Patient denies ever going to any rehab facilities prior. Patient confirmed his friend, Conradadolfo Beltran, @E [phone] is his alt medical decision maker. D/c for today.
[2024-12-20 12:00] VITALS: BP 119/76; PULSE 86; PULSE 87; RESP 15; TEMP 36.3; O2SAT 98
--- NOTE | 2024-12-20 13:46 | ESDS_ITS ---
<Statement entered by Refugio Haque MD - 12/23/24 15:07> I reviewed above note and agree with findings and plans. I have also personally examined the patient with medicine team and went over assessment and plan with medical team including business analytics intern and resident physician. Discharge time more than 30 minutes. Planned Discharge Date 12/20/24 DS: Providers Provider Date of admission: 12/18/24 11:34 Primary care physician: Physician No Primary/Family Admitting Provider: Refugio Haque MD Attending Provider on Admission: Refugio Haque MD Attending Provider on DC: Zeny Oro MD Discharging Provider: Zeny Oro MD DS: Diagnosis Problem List Completed Was Problem List Reviewed/Reconciled?: Yes Hospital Course Hospital Course Hospital course: Summary: Patient is a 34-year-old male with a past medical history of alcohol use disorder who was admitted on 12/18/2024 for alcohol withdraw and acute pancreatitis. ER Course: Vitals BP 140/98, HR 93, RR 18, T 97.6, SpO2 98 WBC 8.1 Na 130, osmolarity 260, K 3.3, chloride 94, Carbon dioxide 24, Anion gap 12, BUN 11, Cr 0.7, GFR >60 Total August 2.3, AST 620, ALT 393, Alkaline Phosphatase Lipid: Triglycerides 403, Cholesterol 126, HDL 61, LDL TNP Medication: 1 bolus, ER folic Acid and Thiamine, Potassium, Lorazepam 2 mg IVP X1 Hospital Course: Patient is a 34-year-old male with a past medical history alcohol use disorder who has been using alcohol for greater than 5 years consistently for the past 2 to weeks, consuming over 4 beers of 32 ounce. Patient's abnormalities had Amylase 77 and Lipase 131. Pain 10/[address] abdomen noted to have pancreatic edema w/ no pseudocyts noted. Patient made NPO and advance to cardiac diet as patinet tolerated diet well. Alcohol withdrawl treated with CIWA protocal on Ativan. In the ER, CIWA of 19 and now CIWA 0. Alochol hepatitis which improved from AST 620 and ALT 393 and time of discharge AST 142 and ALT 183. which improved. Total bili dropped from 2.3 to 1.4. Cholelithiasis noted on CT Abdo men, Naylor's sign negative, please follow up outpatient. Instructions: -Please take all your medication as prescribed -Please hold atorvastatin 40 mg tablet until you see your primary care provider, your liver enzymes are elvated -Please hold quetiapine 25 mg until you see your primary care provider -Please follow up with your primary care provider within one week of discharge -If your symptoms worsen,please seek immediate medical attention and return to your nearest emergency room -If you do not have a primary care provider, [facility] [address] [place] [address], - discussed, recommend alcohol abstinence, if withdrawal symptoms recur, please return to the emergency room. safe to return home #Acute Pancreatitis, improved #Alcohol Withdrawal, improved #Alcohol Use Disorder #Alcohol Hepatitis, improved #Alcohol-Related Fatty liver Disease #Transaminitis, improved #Hyperbilirubinemia, improved #Mild Hyponatremia, Hypoosmolar #Hypokalemia #Cholelithiasis - The patient's plan was discussed with attending Dr. Haque and senior residents Dr. Dimitris Oro MD PGY1 Internal Medicine Time Spent with Patient Time attestation: Total time spent providing and/or coordinating discharge services: more than 30 minutes of care and coordination Exam Vital Signs Temp Pulse Resp BP Pulse Ox O2 Del Method 97.3 F 87 15 119/76 98 Room Air 12/20/24 12:00 12/20/24 12:00 12/20/24 12:00 12/20/24 12:00 12/20/24 12:00 12/20/24 12:00 Narrative Exam General Appearance: Alert & Oriented X3, well-nourished MALE who is lying in bed in no acute distress HEENT: Skull symmetrical and atraumatic. Conjunctivae pin and moist. Pupils equal, round, reactive to light and accommodation (PERRL). External ear without lesion or discharge. Straight, nares patient, mucosa pink, no discharge. No thyroid nodule appreciated. No cervical lymphadenopathy. Cardio: Normal Rate and Rhythm with S1 and S2 heart sounds. No murmurs or extra heart sounds auscultated. No bruits on carotid auscultation. No peripheral edema or cyanosis. Lungs: Symmetric with good expansion. Chest and back non-tender. Breath sounds vesicular without crackles, wheezing or rhonchi Abdomen: left right upper quadrant tender, no rebound tenderness, Non-distended, Normal Reactive Bowel Sounds Neuro: Alert, cooperative, oriented to person, place, and time. Speech clear. CN grossly intact. Upper motor strength 5/5 and Lower motor strength 5/5. Sensation intact. Discharge Plan Plan Patient Disposition: HOME (Self Care) Care Plan Goals: Instructions: -Please take all your medication as prescribed -Please hold atorvastatin 40 mg tablet until you see your primary care provider, your liver enzymes are elvated -Please hold quetiapine 25 mg until you see your primary care provider -Please follow up with your primary care provider within one week of discharge -If your symptoms worsen,please seek immediate medical attention and return to your nearest emergency room -If you do not have a primary care provider, you [facility] [address], [place] [address], - discussed, recommend alcohol abstinence, if withdrawal symptoms recur, please return to the emergency room. safe to return home Prescriptions/Referrals Prescriptions/Med Rec: Continued folic acid 1 mg tablet 1 mg PO BID 30 Days Qty: 60 1RF thiamine mononitrate (vit B1) [Vitamin B-1 (mononitrate)] 100 mg Tablet 100 mg PO BID 30 Days Qty: 60 1RF Held atorvastatin 20 mg Tablet 40 mg PO HS 30 Days Qty: 60 1RF Hold Instructions: Please hold until your AST and ALT improve quetiapine 25 mg tablet 25 mg PO HS Qty: 7 0RF Hold Instructions: Please hold until you follow up with your primary care doctor Referrals: No Primary/Family,Physician [Primary Care Provider] - Zeny Oro MD [Resident] - Patient/Caregiver Discharge Instructions Education Materials: Understanding Pancreatitis, Alcohol Addiction, Alcohol Withdrawal: What to Expect Print Language: [place] Stand Alone Forms: Christal Award Info., Patient Portal Info Letter Discharge Order Discharge Orders: Discharge (Routine); Ordered 12/20/24 Ordered By: Zeny Oro Quality Discharge Quality Measures VTE prophylaxis
== END 2024-12-20 14:39 | disposition home or self-care (01) | DRG 282 ==
LOC: SERX 12-18 10:21 → SERHOLD 12-18 11:57 → S2NX 12-18 18:24
PROVIDERS: Registered Nurse General Practice; Admitting Provider Internal Medicine; Emergency Provider Emergency Medicine; Visit Provider Internal Medicine
DX: K85.20 Alcohol induced acute pancreatitis without necrosis or infection (principal); F10.139 Alcohol abuse with withdrawal, unspecified; R51.9 Headache, unspecified; F10.129 Alcohol abuse with intoxication, unspecified; E87.1 Hypo-osmolality and hyponatremia; E87.6 Hypokalemia; K70.10 Alcoholic hepatitis without ascites; K76.0 Fatty (change of) liver, not elsewhere classified; K80.20 Calculus of gallbladder without cholecystitis without obstruction; K37 Unspecified appendicitis; Y90.8 Blood alcohol level of 240 mg/100 ml or more
CPT/HCPCS: 36415; 74177; 76700; 80053; 80061; 80307; 80320; 82150; 83036; 83690; 83735; 84100; 84443; 85025; 85610; 85730; 96361; 96374; 96375; 99285; A4649; J1643; J2060; J2405; J2470; J3411; J3490; J7030; Q0162; Q9967; A9270; G0480